=== PATIENT | female | born 1955 | race Caucasian/White ===

== ENCOUNTER 2024-10-14 10:14 | Outpatient (REF) | payer MEDICARE, SELFPAY | END 2024-10-14 10:15 | disposition home or self-care (01) | LOC: HO.HOSX 10:14 | PROVIDERS: PCP Internal Medicine; Visit Provider Physician Assistant | DX: M54.9 Dorsalgia, unspecified (principal) | CPT/HCPCS: 72110; 99202 ==

== ENCOUNTER 2024-10-14 10:14 | Outpatient (AMB) | payer MEDICARE, SELFPAY ==
--- NOTE | 2024-10-14 10:50 | A.SPINEOV_ITS ---
Vital Signs 10/14/24 10:54 Height 5 ft 1 in Weight 125 lb BMI 23.6 Intake Visit Reasons: 2 herniated disc/spinal stenosis Intake Note: Mrs. Shoemaker is here today c/o low back pain that radiates up to the mid back also hip pain. mostly on the right side. Protection Specialist Required: No Allergies erythromycin base Adverse Reaction (Unknown, Verified 10/14/24 10:55) Unknown Physical Exam Vital Signs: BMI result Body Mass Index 23.6 Assessment & Plan Assessment & Plan (1) Back pain: Code(s): M54.9 - Dorsalgia, unspecified Category: Medical Plan . This is a 69-year-old self-referred female presents to the office today for evaluation of chronic low back pain. It is centered mostly in the lower lumbar spine but she also does get some of it also radiating up toward her thoracic spine. She has had it for about 5 years but noticed over the last years has gotten progressively worse. Ever since this summer it has actually gotten to a point now where it is almost debilitating at times. Even gentle activity will give her significant amounts of pain. She tried prednisone, Flexeril etc.. She went to the urgent care in [place] and was evaluated there. She was told she was not a surgical candidate because she did not have any pain going down her legs. The pain intensifies with standing walking. It does not bother her so much at night but during activity during the day it is quite debilitating. She will occasionally get pain into her right hip but not anything shooting down her leg. She takes [id number] medications like Tylenol, Motrin etc. but these things do not seem to help. She did do healthcare administrative assistant for awhile but she isn't really sure that it was helping much. There was a fall at 1 point in February that seemed to really aggravate it a lot. She has an MRI done the [facility] showing multilevel degenerative disc disease with Modic endplate changes at L1-2, L4-5 and L5-S1 with moderate to severe central stenosis at L4- 5. PMH: She has history of borderline high cholesterol, hand surgery, cataract surgery, cholecystectomy. Social hx: She has not smoke, occasional alcohol use, no marijuana recreational drugs Medications: Rosuvastatin, trazodone Allergies: Erythromycin Physical exam: Awake alert oriented no acute distress, she does have tenderness over the midline lumbar spine, strength and reflexes as well as gait are normal. Imaging review: Lumbar MRI done in April of this year [facility] shows significant disc degeneration at multiple levels including L1-2, with edema and endplate changes at this level, moderate to severe disc degeneration at L4-5 and L5-S1. There are Modic endplate changes at L4-5 as well as moderate to severe central stenosis. Impression: 69-year-old female presents to the office today for evaluation of chronic back pain that is been getting steadily worse over the last 6-12 months. It centered all along the lumbar spine, primarily worse in the lower lumbar spine but at times can be quite intense as it radiates up along her thoracolumbar junction. She has multiple degenerative changes throughout her lumbar spine, the worst is at L1-2 where there are edema changes on the STIR sequence, Modic endplate changes at this level with almost complete collapse of the disc space. At L4-5 and L5-S1 she has moderate to severe degeneration also with Modic endplate changes but not quite as severe as L1-2. I sent the patient for x-rays standing in the upright position, no signs of a fracture or any overt instability. She does have severe DDD at the L1-2 which is [id number] as well as some lateral collapse at L4-5 on the left, which is looking like [id number] as well. We are going to send her to Dr. Cantrell to see if he can help us localize where the pain is coming from and maybe do some therapeutic injections for her. We will see her back after the injections are complete. Thank you for allowing us to care for your patient. The total time spent with this visit with this patient was 45 minutes reviewing history, physical exam, lumbar imaging review, and implementation of treatment plan or further diagnostic testing Chito Cameron MD,PhD [facility] Orders: Orders XR lumbar spine 4V min Today M54.9 - Dorsalgia, unspecified Referrals Physiatry Referral M54.9 - Dorsalgia, unspecified Coding Level of Care Code New Pt Level 4 (96180) Diagnoses Back pain M54.9
[2024-10-14 10:54] VITALS: BMI 23.6
--- OUTSIDE RECORDS SUMMARY | 2024-10-19 07:19 | XMS_ITS ---
Author Name [facility] Organization Unknown History of Medication Use Medication Directions Dispensed Refills Start Date End Date [facility] rosuvastatin 5 mg tablet TAKE 1 TABLET BY MOUTH ONCE DAILY 04/13/2024 active citalopram 40 mg tablet TAKE 1 TABLET BY MOUTH ONCE DAILY 04/13/2024 active trazodone 100 mg tablet TAKE 1 TABLET BY MOUTH ONCE DAILY AT BEDTIME 04/13/2024 active Problems Problem Status Onset Date Problem Type Date of Resoluti on Source Chronic low back pain active 2024-04-28 ProblemAct ENS_AONECT Degeneration of lumbar intervertebral disc active 2024-04-28 ProblemAct ENS_AONE [facility]
--- OUTSIDE RECORDS SUMMARY | 2024-10-19 07:19 | XMS_ITS | Data Portability ---
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 She has little in in the way of lower extremity symptoms if she sits in a chair and rides in a car for 1 to 2 hours her legs go numb. She denies fatigue heaviness or incoordination of her lower extremities. She has no sphincter disorder. Recently the pain has been disturbing her sleep every night. She denies fever chills sweats or unexplained weight loss. She has had intermittent back pain for years. At one point she had an MRI the physician told her she had a disc herniation. Overall she did well until November 2023 when she developed rather severe pain. She has been treated with career development facilitator acetaminophen and nonsteroidals without benefit. In January for about a month she noted some improvement but she is reverted to her level of significant pain. == Physical examination: Examination is unremarkable except for mild scoliotic deformity with secondary pelvic obliquity. Her spine is nontender. Her SI joints are nontender. Her leg lengths are equal (82 cm). She has no tension sign or weakness in either the upper or lower extremities. She has no Gutierrez's or clonus. Her plantar reflexes are downgoing. Her pedal pulses are intact. Pain cannot be reproduced with manipulation of her right hip. She is not tender over the trochanter. == We discussed the diagnosis natural history and treatment options. She has meaningful back pain with degenerative disc disease. She has failed reasonable nonoperative care. She is referred for a lumbar MRI. She is encouraged to pursue yoga with Eyad until she returns to review the MRI. Pending the results of the scan we could consider continued stoic forbearance, or formal physical therapy, injections or possibly surgery. 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 Her recent MRI revealed severe degenerative disc disease at L4-5 and L5-S1 and very severe degenerative disc disease at L1-2. She had associated lumbar stenosis primarily at L4-5. She has had extensive nonoperative care including physical therapy. Her examination is unremarkable without weakness. The pain is not reproduced with manipulation of her hips We had a truly extended conversation regarding her situation. Her safest and best option is to coexist with her symptoms. Unfortunately this is quite difficult. Her pain is greatly limiting her life. It is almost inconceivable that any combination of injections will bring her meaningful relief. We had a long discussion regarding surgical intervention. This is problematic for back pain without radicular pain but is even more problematic and that she has 2 segments of her lumbar spine that are focally but highly degenerated. One could consider a DLIF at L1-2 and an ALIF at L4-5 and L5-S1. I explained that the risks of the procedure are stable but the potential benefits are complicated and that we are unable to identify which of these problems and if either of these problems are the main issue. Ultimately if she found the pain were completely intolerable I would strongly consider L1 to DLIF. Depending on how she does over time I would consider an L4-S1 ALIF. She will consider her options and follow-up on an as-needed basis. Not available 04/28/2024 14:40:01 Plan of Treatment Reminders Order Date Submit Date Provider Last Modified By Organization Details Last Modified Time Details Appointments None recorded. Lab None recorded. Referral None recorded. Procedures None recorded. Surgeries None recorded. Imaging XR, lumbosacral spine, 2 or 3 view 2023 024 [facility], [address], [facility], [place], [address], 06/06/202 4 09:49:21 MRI, lumbar spine, w/o contrast 2023 024 JO ANN Not available 07:58:24 Medication Orders None recorded. Patient TargetsNo targets recorded. Patient Instructions Encounter Date Encounter Id Patient Instructions Last Modified By Organization Details Last Modified Time 04/11/2024 [id number] AP and lateral radiographs lumbosacral spine were obtained in the [place] facility today. The prominent findings include severe degenerative disc disease at L4-5 and L1-2. Both levels result in mild complementary scoliotic curves. There is moderate degenerative disc disease at L5-S1. There is no evidence of tumor fracture infection Not available 04/11/2024 15:34:59 Reason for Referral None Reported. Results Created Date Observation Date Name Description Value Unit Range Abnormal Flag Note LastModifiedBy Organization Detail LastModifiedTime 04/19/20 24 04/18/2024 MRI, lumba r spine , w/o contr ast No observ ation record ed. [email or web address] Not Available 04/21 07:58:24 04/28/20 24 MRI, lumba r spine , w/o contr ast No observ ation record ed. [email or web address] Not Available 2023 16:20:04 Result Notes None recorded. Problems Name Problem SNOMED Code Status Onset Date Resolution Date Notes Provider Name and Address Organization Details Recorded Time Chronic low back pain 738215851 Active 2023 Yordan Melendrez MD [address], [facility] [place], [address], [place] [facility], P 4 14:39:43 Degeneration of lumbar intervertebral disc 08153068 Active [address], [place], [address], [place] [facility], P 4 14:39:56 Problem Notes None recorded. Procedures Surgical History Date Name Laterality Status Provider Name and Address Organization Details Recorded Time Hand Surgery completed Roopa Carrington [place] - [facility] 04/11/2024 15:07:47 Hand Surgery completed Roopa Carrington [place] [facility] 04/11/2024 15:07:47 Imaging Results Imaging Date Name Status LastModified by Organiz ation Details LastModified Time 04/18/2024 MRI, lumbar spine, w/o contrast completed [email or web address] Information not available 04/21/2024 07:58:24 04/28/2024 MRI, lumbar spine, w/o contrast completed [email or web address] Information not available 04/28/2024 16:20:04 Procedure Notes None recorded. Medical Equipment None Reported. Allergies No known drug allergies Medications Name Sig Start Date Stop Date Status Note LastModified by Organization Details LastModified Time citalopram 40 mg tablet TAKE 1 TABLET BY MOUTH ONCE DAILY 04/28 completed Not Available Not Available Not Available trazodone 100 mg tablet TAKE 1 TABLET BY MOUTH ONCE DAILY AT BEDTIME active Not Available Not Available No t Available rosuvastatin 5 mg tablet TAKE 1 TABLET BY MOUTH ONCE DAILY active Not Available Not Available No t Available Vitals Date Recorded Body height Body mass index (BMI) Body weight Provider Name and Address Organization Details Last Updated DateTime 04/11/2024 154.94 cm 23.6 kg/m2 62789.[address] [facility] 04/11/2024 15:06:28 Date Recorded Body height Body mass index (BMI) Body weight Provider Name and Address Organization Details Last Updated DateTime 04/28/2024 154.94 cm 23.6 kg/m2 00782.05 g Joyce Dominguez [place] - [facility] 04/28/2024 13:57:44 Social History Question Answer Notes LastModified by Organizat ion Details LastModified Time Tobacco Smoking Status Never Smoker Roopa Carrington null, [place] [facility] 04/11/2024 15:06:56 What Is Your Level Of Alcohol Consumption? Moderate [email or web address] Information not available 04/11/2024 How Many Times Per Week Do You Consume Alcohol? 3-4 Times Per Week [id number] Information not available 04/11/2024 Do You Use Any Illicit Or Recreational Drugs? No [id number] Information not available 04/11/2024 Do You Or Have You Ever Used Any Other Forms Of Tobacco Or Nicotine? No [email or web address] Information not available 04/11/2024 Sex: Unknown Functional Status None recorded. Mental Status None recorded. Family History Relationship Description Onset Age of this Age Resolved Age Notes LastModified by Organization Details LastModified Time Mother Arthritis [email or web address] Not armaan ilable 04/11/2024 15:07:16 Mother Hyperlipidem ia [id number] Not available 15:07:34 Brother Arthritis [email or web address] Not av ailable 04/11/2024 15:07:17 Medical History Condition Response Coronary Artery Disease N Gout N Hyperthyroidism N MRSA N Blood Transfusion N Emphysema N Depression N COPD N Hypothyroidism N Pacemaker N Vascular Disease N Gastrointestinal Disease N Anxiety Disorder N Autoimmune disease N Arthritis N Cancer N Stroke N High Cholesterol N Neurologic Disorder N Liver Disease N Organ Transplant N Rheumatoid Arthritis N Arrhythmia N Fibromyalgia N Kidney Disease N Allergies/Hayfever N Adverse Reaction to Anesthesia N Thyroid Problems N Anemia N Brain Injury N Heart Attack ([place]) N Osteopenia N Diabetes N Bleeding Disorder N Seizures/Epilepsy N AIDS/HIV N Congestive Heart Failure (CHF) N Asthma N Amputation N Reflux/GERD N Sleep Apnea N Hepatitis N Aneurysm N Heart Disease N Pulmonary Embolism N Hypertension N Osteoporosis N Gynecological HistoryNo gynecological history recorded. Obstetrics History GPAL:G 0 P 0 0 0 0 Past Encounters Encounter ID Performer Location Encounter Start Date Encounter Closed Date Diagnosis/Indication Diagnosis SNOMED-CT Code Diagnosis ICD10 Code [id number] Yordan Melendrez MD [address] [address] 04/11/2024 14:59:43 04/11/2024 15:40:13 Low back pain 073668259 M54.50 [id number] Yordan Melendrez MD [address] [address] 04/28/2024 13:38:39 04/28/2024 14:41:13 Chronic low back pain 940164150 M54.50 G89.29 Degenerati on of lumbar intervertebral disc 70940480 M51.36 Health Concerns Section Related Observation LastModified by Organization Detai ls LastModified Time None Recorded Concern Status LastModified by Organization Details LastModified Time None Recorded Advance Directives Directive None Recorded Payers Encounter Date Sequence Insurance Name Policy Number Policy Salas Covered Member ID Salas Member ID Guarantor Name 04/11/2024 1 [employer] - MED[employer]ARE ADVANTAGE PLAN (MEDICARE REPLACEMENT HMO) [id number] 1 Jennifer Shoemaker [id number] Jennifer Shoemaker 04/28/2024 1 [employer] - MEDIC[employer] ADVANTAGE PLAN (MEDICARE REPLACEMENT HMO) [id number] Jennifer Shoemaker [id number] Jennifer Shoemaker OBGyn Episode No OBEpisode recorded.
== END 2024-10-14 11:49 | disposition home or self-care (01) ==
PROVIDERS: PCP Internal Medicine; Visit Provider Physician Assistant
DX: M54.9 Dorsalgia, unspecified (principal)
CPT/HCPCS: 99204

== ENCOUNTER → 2024-12-02 14:35 | Outpatient (BNVA) | payer MEDICARE, SELFPAY | PROVIDERS: PCP Internal Medicine; Visit Provider Physician Assistant | DX: M54.9 Dorsalgia, unspecified (principal); M48.061 Spinal stenosis, lumbar region without neurogenic claudication | CPT/HCPCS: 99212 ==

== ENCOUNTER 2025-02-02 07:24 | Day surgery (SDC) | payer MEDICARE, SELFPAY ==
[2025-01-19 12:20] VITALS: BMI 24.9
--- NOTE | 2025-01-20 14:25 | HO.ANESPROP2 ---
Documented by User: Anastasiia Grant NP 01/20/25 14:33 HPI - Anesthesia Eval Consult details Narrative: 69yo F for Left-sided approach for bilateral L4 - 5 decompression Optimized per PCP [facility] Active Problems Active Problems: All Active Problems Lumbar stenosis (Acute) Back pain (Acute) Past Medical History Medical History [employer] [place] [employer] (hard of hearing) Wears hearing aid in both ears Wears dentures History of trigger finger Spinal stenosis Insomnia Surgical History Surgical History History of carpal tunnel release Hx of bilateral cataract extraction Hx of colonoscopy Hx of cholecystectomy Social History Social History Household Members: Spouse Housing: House Are you a primary care attendant to a significant other at home: No Do you presently have visiting nurse or other home services: No Patient Tobacco Use Status: Former Tobacco user Tobacco use type: Cigarette Smoked in Last 30 Days: No Use of substances other than those prescribed or required for medical reasons: No Have you been hit, kicked, punched, or otherwise hurt by someone within the past year? If so, by whom?: No Are you DNR?: No Advance Directives: No Advance Directives Information Provided: Yes Advance Directives on File: No Healthcare Proxy: No Recently lost weight without trying: No Meds Allergies Allergy/AdvReac Type Severity Reaction Status Date / Time erythromycin base AdvReac Unknown Rash, as a Verified 02/02/25 08:09 child Home Medications ?Medication ?Instructions ?Recorded ?Confirmed ?Last Taken ?Type gabapentin 400 mg capsule 400 mg PO TID 01/18/25 02/02/25 02/02/25 History rosuvastatin 5 mg tablet 5 mg PO DAILY 01/18/25 02/02/25 Unknown History trazodone 100 mg tablet 100 mg PO BEDTIME 01/18/25 02/02/25 Unknown History Exam Height,Weight and Vital Signs: Height 5 ft 1 in Weight 59.874 kg Pertinent Lab Results Pertinent Lab Results: CBC and CMP 01/2025 from outside facility WNL Narrative Narrative: EKG 01/2025 SR Low voltage Poor R wave progression Assessment and Plan Assessment Anesthesia Assessment: Chart Reviewed Documented by User: Fransisca Barrios MD 02/02/25 08:50 PMFSH Past Medical History Medical History [employer] [place] (hard of hearing) Wears hearing aid in both ears Wears dentures History of trigger finger Spinal stenosis Insomnia Family History Family history of problems with anesthesia: No Surgical History Surgical History History of carpal tunnel release Hx of bilateral cataract extraction Hx of colonoscopy Hx of cholecystectomy History of Problems with Anesthesia: No Social History Social History Household Members: Spouse Housing: House Are you a primary care attendant to a significant other at home: No Do you presently have visiting nurse or other home services: No Patient Tobacco Use Status: Former Tobacco user Tobacco use type: Cigarette Smoked in Last 30 Days: No Use of substances other than those prescribed or required for medical reasons: No Have you been hit, kicked, punched, or otherwise hurt by someone within the past year? If so, by whom?: No Are you DNR?: No Advance Directives: No Advance Directives Information Provided: Yes Advance Directives on File: No Healthcare Proxy: No Recently lost weight without trying: No Meds Allergies Allergy/AdvReac Type Severity Reaction Status Date / Time erythromycin base AdvReac Unknown Rash, as a Verified 02/02/25 08:09 child Home Medications ?Medication ?Instructions ?Recorded ?Confirmed ?Last Taken ?Type gabapentin 400 mg capsule 400 mg PO TID 01/18/25 02/02/25 02/02/25 History rosuvastatin 5 mg tablet 5 mg PO DAILY 01/18/25 02/02/25 Unknown History trazodone 100 mg tablet 100 mg PO BEDTIME 01/18/25 02/02/25 Unknown History Exam Airway Mallampati Class: II TM Dist: >3cm Neck ROM: Full Denture: Upper Assessment and Plan Assessment Anesthesia Assessment: Anesthesia Plan Discussed Final Anesthetic Review Family History of Problems with Anesthesia: No History of Problems with Anesthesia: No NPO: Yes ASA Class: II Final Preanesthetic Review: No Changes in Pt Med Stat, Meds/Allgs Chart Reviewed, Consent Obtained/Reviewed and Anes Risks/Benef Reviewed Patient Risk: Low Procedure Risk: Intermediate Anesthetic Plan Anesthetic Plan: GA Disposition: Standard PACU
--- NOTE | ~2025-02-02 | FL_ITS ---
EXAMINATION: FL GUIDANCE ONLY HISTORY: L4-L5 bilateral decompression COMPARISON: Correlation is made with plain films of the lumbar spine dated 10/14/2024. TECHNIQUE: Fluoroscopy time: Less than 1 minute. Cumulative Dose: 2.69 mGy. DAP: 0.579 mGym2 Images: 1. FINDINGS: A single fluoroscopic spot film of the lumbar spine in the lateral projection demonstrates a probe directed toward the L4-5 intervertebral disc space from a posterior approach. FL/FL guidance in OR IMPRESSION: Fluoroscopy during procedure. Please see procedure report for additional information. Electronically signed by: Oliver Ontiveros MD 02/02/2025 10:48 AM EDT
[2025-02-02 08:17] VITALS: BP 136/63; PULSE 60; RESP 14; TEMP 36.6; O2SAT 99
[2025-02-02] MEDS: methocarbamoL 750 MG TABLET PO (08:36)
[2025-02-02] MEDS: Lactated Ringers 1,000 ML 100 ML IVCONT (08:36)
--- NOTE | 2025-02-02 08:37 | PC.NURSE ---
Gabapentin not given as ordered by Dr. Cameron Pt states took 400mg Gabapentin at home at 700AM.
--- NOTE | 2025-02-02 08:54 | MHC.SHP ---
Pre-Procedural Eval Section A - 24 Hr Update-Section A only Date of Service: 02/02/25 The patient is an INPATIENT: No Section B - Complete if H&P > 30 days Chief Complaint: Spinal stenosis, lumbar region without neurogenic Details of Present Illness: neurogenic claudicatio Allergies: Allergies Allergy/AdvReac Type Severity Reaction Status Date / Time erythromycin base AdvReac Unknown Rash, as a Verified 02/02/25 08:09 child Review of Systems Sugical H&P ROS: Negative: Constitution, Cardiovascular, Respiratory, Neurological, Psychiatric, Hem-Onc, Allergic/Immunologic, Gastrointestinal, Genitourinary, Musculoskeletal, Integumentary, Endocrine and Eyes/Ears/Nose/Throat Exam Surgical H&P Exam: Normal: HEENT, Normal: Heart, Normal: Lungs, Normal: Extremities, Normal: Abdomen, Normal: Skin and Normal: Neurological (awake, alert) Plan Diagnosis/Plan: Unchanged I have reviewed the history and physical and performed a pertinent physical examination on my patient. No changes have occurred unless specified. bilateral L4-5 decompression, left side approach Time Spent With Patient Time: Total time managing care of this patient today ____ minutes.
--- NOTE | 2025-02-02 09:40 | P.DS_ITS ---
DS: Providers Provider Date of Service: 02/02/25 Date of discharge: 02/02/25 Primary care physician: Jessie Vera MD Admitting clinician: Eduardo Cameron DS: Diagnosis Discharge Diagnosis (1) Lumbar stenosis: Status: Acute DS: Summary Time Attestation Discharge Coordination Time (in mins): 4 Quality: Safe Use of Opioids Does Pt have an Active Cancer Diagnosis on the Problem List?: No Quality: Stroke Does the patient have a stroke diagnosis?: No Physical Exam Vital Signs: Vital Signs: Last Vital Signs Temp 97.9 F 02/02/25 08:17 Pulse 60 02/02/25 08:17 Resp 14 02/02/25 08:17 BP 136/63 02/02/25 08:17 Pulse Ox 99 02/02/25 08:17 O2 Del Method Room Air 02/02/25 08:17 BMI result Body Mass Index 24.9 Discharge Plan Discharge Patient Disposition: Home, Self-Care Referrals: Jessie Vera MD [Primary Care Provider] - 1 Week Discharge Medications: New oxycodone 5 mg tablet 5 mg PO Q4H PRN (Reason: pain) Qty: 30 0RF Rx Instructions: Partial Fill upon patient request. docusate sodium [Colace] 100 mg capsule 100 mg PO BID Qty: 20 0RF Continued gabapentin 400 mg capsule 400 mg PO TID trazodone 100 mg tablet 100 mg PO BEDTIME rosuvastatin 5 mg tablet 5 mg PO DAILY Discharge Orders: Discharge Order (Routine); Ordered 02/02/25 Ordered By: Chito Bernardo Diet: Advance to usual diet Activity on Discharge: As tolerated Activity Restrictions/Additional Instructions: After your spinal surgery we ask you to observe the following restrictions/guidelines: Activity: It is normal to feel some discomfort as you increase your activity, but that will improve with time. We ask you avoid heavy lifting or acitivities that cause pain. As a general rule, 8lbs is a safe limit for lifting right after surgery. Walk as much as you feel comfortable but not to exhaustion. You will feel extra tired the first few days after surgery. Stay well hydrated. It is OK to walk up and down stairs You may return to driving when you are off narcotics (such as vicodin, oxycodone, dilaudid, etc), and you are back to normal functional capacity. If you have any concerns please check with office before driving. Return to work is specific to each patient and each surgery, so please speak with your doctor/PA at first follow up. Please bring paperwork such as FMLA at that time if you need it filled out. Medications: For optimum pain control, it is best to start with a combination of 500 mg of Tylenol every 4 hours with 600 mg of Motrin every 8 hours, and use narcotics as needed in between for breakthrough pain. We will give you a short supply of narcotics after surgery (usually one weeks worth). If you need more please call the office but do not use more than prescribed. You will need to give our office 48 hours notice if you need narcotics refilled and we do not fill narcotics on weekends or evenings. If you are on a narcotic, it is a good idea to take a stool softener such as colace or senna to avoid constipation If you take blood thinner such as aspirin, Plavix, Coumadin, Effient, Eliquis etc for conditions such as Afib, DVT, Pulmonary embolus, coronary disease, stents etc please speak with your surgeon about specific details as to when you can resume these medications. You can resume NSAIDs on post op day 1 (eg: Motrin, Naproxen, etc). Follow up: Please call the office, , after surgery to arrange a 3 week follow up for wound check. Wound Care: You may remove your dressing on the first day after surgery. ?You may ?leave open to air. Please do not remove the steri strips underneath. they will fall off on their own in one week. IT IS NORMAL FOR THE WOUND TO OOZE OR BE BLOODY FOR A FEW DAYS AFTER SURGERY. ?IF THIS HAPPENS JUST PLACE NEW DRESSING OVER IT TO AVOID STAINING CLOTHES. You may shower on post op day # 1 We ask that you do not let the water soak the wound. If it does get wet, just towel dry lightly. Please do not scrub your incision or place any type of chemical/ointment on the wound. No tub baths, pools or jacuzzis for one month. If you have any leaking or redness from your wound, or fevers, please call office Print Language: Ecuadorean
[2025-02-02] MEDS: ceFAZolin Sodium/Dextrose,Iso 2 GM/50 ML PIGGYBACK IV (09:45)
[2025-02-02] MEDS: Acetaminophen 1,000 MG/100 ML PIGGYBACK 400 MG IV (10:00)
--- NOTE | 2025-02-02 10:40 | W.PM.OPN ---
Operative Note Operative Note Date of Service: 02/02/25 Narrative: Preoperative Diagnosis: L4-5 spinal stenosis/lateral recess stenosis/neural foraminal stenosis Operation: L4-5 Laminotomy, Partial facetectomy and foraminotomy with use of microscope Consent Informed Consent was obtained for this operation. I have explained the nature, purpose and benefits of the operation. I have discussed the risks and benefit of the operation including possible complications or adverse events with patient/family. Alternative(s) were discussed with the patient with their relative benefits and risks as well as the consequences of not accepting the operation were included in obtaining consent. Surgeon: CARA PINEDA MD, PHD Procedure Assisted By: Chito Duong Description of Procedure This patient is suffering from neurogenic claudication. The patient was offered a decompression. The procedure complications were explained. The patient was consented. The patient was brought to the operating room and endotracheally intubated. The patient was turned in prone position on the Walter frame. Prep and drape was done followed by timeout. The Physician assistant quality manager provided access. A mid lumbar incision was made followed by release of the paravertebral muscle on the left side to expose the L4-5 lamina and facet joints. An intraoperative x-ray was obtained to confirm the correct level. The microscope was brought in. I took over the procedure. The high-speed drill was used to do a left L4-5 laminotomy until flavum ligament was reached. A #2 Kerrison was used to expand the laminotomy near flush to the pedicles and to include a partial facetectomy. The flavum ligament was opened and resected with a #3 Kerrison to decompress the underlying thecal sac. The flavum ligament was removed to decompress the lateral recess and the exiting L5 nerve root. The patient was turned contralaterally. The spinous processes undercut and this way I was able to remove the flavum ligament contralaterally into decompress the lateral recess and exiting nerve root. A long nerve hook could be easily passed along the medial side of the pedicles as a sign of adequate decompression. The microscope was removed. Hemostasis was done. The physician assistant quality manager close the Incision in 2 layers. Steri-Strips were used to approximate incision. An OpSite with Tegaderm was used to cover the incision. All sponge needle counts were correct. Patient was extubated and transported in stable is to recovery room. Anesthesia: General Estimated Blood Loss (ml): 20 Complications: None Duration of Surgery: Under 60 Minutes Postoperative Plan: Discharge to home
[2025-02-02 10:51] VITALS: BP 139/67; PULSE 91; RESP 16; TEMP 36.6; O2SAT 100
[2025-02-02 10:55] VITALS: BP 131/67; PULSE 75; RESP 16; O2SAT 100
[2025-02-02 11:00] VITALS: BP 122/74; PULSE 72; RESP 16; O2SAT 98
[2025-02-02 11:05] VITALS: BP 136/63; PULSE 70; RESP 16; O2SAT 97
[2025-02-02 11:11] VITALS: BP 139/66; PULSE 78; RESP 16; TEMP 36.6; O2SAT 97
== END 2025-02-02 11:34 | disposition home or self-care (01) ==
PROVIDERS: PCP Internal Medicine; Visit Provider Neurological Surgery
PROC: (CPT 63047; principal; 2025-02-02 10:00)
DX: M48.062 Spinal stenosis, lumbar region with neurogenic claudication (principal); M54.50 Low back pain, unspecified; F32.A Depression, unspecified; E78.5 Hyperlipidemia, unspecified; G47.9 Sleep disorder, unspecified; H91.90 Unspecified hearing loss, unspecified ear; Z79.899 Other long term (current) drug therapy; Z88.1 Allergy status to other antibiotic agents; Z98.890 Other specified postprocedural states; Z87.891 Personal history of nicotine dependence
CPT/HCPCS: 63047; J0131; J0690; J1100; J1885; J2003; J2405; J2704; J3010

== ENCOUNTER → 2025-02-02 07:24 | Outpatient (BNV) | payer MEDICARE, SELFPAY | PROVIDERS: PCP Internal Medicine; Visit Provider Neurological Surgery | DX: M48.062 Spinal stenosis, lumbar region with neurogenic claudication (principal) | CPT/HCPCS: 63047; 99499 ==

== ENCOUNTER 2025-02-22 11:40 | Outpatient (AMB) | payer MEDICARE, SELFPAY ==
--- NOTE | 2025-02-22 11:41 | A.SPINEOV_ITS ---
Intake Visit Reasons: 1st post op Intake Note: Ms. Shoemaker is here today for her 1st post op. Change Manager Required: No Allergies erythromycin base Adverse Reaction (Unknown, Verified 02/02/25 08:09) Rash, as a child Assessment & Plan Assessment & Plan (1) Status post lumbar spine surgery for decompression of spinal cord: Code(s): Z98.890 - Other specified postprocedural states Category: Medical Plan Operation: L4-5 Laminotomy, Partial facetectomy and foraminotomy Jennifer is a pleasant 69-year-old female who comes in today for her 1st postoperative visit after having L4-5 lumbar decompression completed by Dr. Cameron. She reports that she has been doing very well since her surgery, and has little to no pain. She has been completing her ADLs without much issue. She is not taking any narcotic pain medication at this time. She does still take gabapentin occasionally, for breakthrough nerve pain. She asked several questions regarding returning to activity including exercise and walking. I answered these questions to the best of my ability. No new neurological deficits. The patient ambulates well and rises from a seated position without difficulty. Her posterior incision site is closed and well healing with no signs of drainage or swelling. I would like Jennifer to follow up with the skin in 6 weeks for her 2nd postoperative visit. Pro Cameron MD,PhD [facility] Coding Level of Care Code Global (07729) Diagnoses Status post lumbar spine surgery for decompression of spinal cord Z98.890
--- OUTSIDE RECORDS SUMMARY | 2025-02-22 14:07 | XMS_ITS ---
Author Organization [facility] Address [address] [place] [address] Care Team Providers Care Front Desk Administrator Name Role Phone CANDIDO VERA Unavailable [phone] MOLYL FLORESY Unavailable [phone] ALLERGIES No Known Allergies RESULTS Component Value Reference Range Notes LIPID PANEL, STANDARD Reviewed date:01/19/2025 07:57:53 AM Interpretation: Performing Lab:NL2, [facility] [id number] Gi Diaz Notes/Report: FASTING: YES FASTING:YES 0; 0; 0; 0; 0; 0 CHOLESTEROL, TOTAL 235 <200 mg/dL HDL CHOLESTEROL 80 > OR = 50 mg/dL TRIGLYCERIDES 104 <150 mg/dL LDL-CHOLESTEROL 134 Reference range: <100 Desirable range <100 mg/dL for primary prevention; <70 mg/dL for patients with CHD or diabetic patients with > or = 2 CHD risk factors. LDL-C is now calculated using the Terri calculation, which is a validated novel method providing better accuracy than the Friedewald equation in the estimation of LDL-C. Quang SOLER et al. YANI. 2013;310(19): 3825-9733 (http://education.[employer].Zane Prep/faq/FAQ16 4) CHOL/HDLC RATIO 2.9 <5.0 (calc) NON HDL CHOLESTEROL 155 <130 mg/dL (calc) For patients with diabetes plus 1 major ASCVD risk factor, treating to a non-HDL-C goal of <100 mg/dL (LDL-C of <70 mg/dL) is considered a therapeutic option. COMPREHENSIVE METABOLIC PANE L Reviewed date:01/19/2025 07:57:53 AM Interpretation: Performing Lab:NL2, [facility] Gi Diaz Notes/Report: 0; 0; 0; 0; 0; 0 FASTING:YES FASTING: YES GLUCOSE 101 65-99 mg/dL Fasting reference interval For someone without known diabetes, a glucose value between 100 and 125 mg/dL is consistent with prediabetes and should be confirmed with a follow-up test. UREA NITROGEN (BUN) 15 7-25 mg/dL CREATININE 0.75 0.60-1.00 mg/dL EGFR 85 > OR = 60 mL/min/1.73m2 BUN/CREATININE RATIO SEE NOTE: 6-22 (calc) Not Reported: BUN and Creatinine are within reference range. SODIUM 140 135-146 mmol/L POTASSIUM 5.1 3.5-5.3 mmol/L CHLORIDE 107 98-110 mmol/L CARBON DIOXIDE 28 20-32 mmol/L CALCIUM 9.5 8.6-10.4 mg/dL PROTEIN, TOTAL 6.8 6.1-8.1 g/dL ALBUMIN 4.5 3.6-5.1 g/dL GLOBULIN 2.3 1.9-3.7 g/dL (calc) ALBUMIN/GLOBULIN RATIO 2.0 1.0-2.5 (calc) BILIRUBIN, TOTAL 0.4 0.2-1.2 mg/dL ALKALINE PHOSPHATASE 56 37-153 U/L AST 27 10-35 U/L ALT 34 6-29 U/L CBC (INCLUDES DIFF/PLT) Reviewed date:01/19/2025 07:57:53 AM Interpretation: Performing Lab:DARSHANA2, [facility] Gi Diaz Notes/Report: 0; 0; 0; 0; 0; 0 FASTING:YES FASTING: YES WHITE BLOOD CELL COUNT 6.5 3.8-10.8 Thousand/ uL RED BLOOD CELL COUNT 4.26 3.80-5.10 Million/uL HEMOGLOBIN 13.6 11.7-15.5 g/dL HEMATOCRIT 40.8 35.0-45.0 % MCV 95.8 80.0-100.0 fL MCH 31.9 27.0-33.0 pg MCHC 33.3 32.0-36.0 g/dL For adults, a slight decrease in the calculated MCHC value (in the range of 30 to 32 g/dL) is most likely not clinically significant; however, it should be interpreted with caution in correlation with other red cell parameters and the patient's clinical condition. RDW 11.5 11.0-15.0 % PLATELET COUNT 292 140-400 Thousand/uL MPV 11.0 7.5-12.5 fL ABSOLUTE NEUTROPHILS 4570 3727-6743 cells/uL ABSOLUTE LYMPHOCYTES 8548 159-2131 cells/uL ABSOLUTE MONOCYTES 468 200-950 cells/uL ABSOLUTE EOSINOPHILS 59 15-500 cells/uL ABSOLUTE BASOPHILS 52 0-200 cells/uL NEUTROPHILS 70.3 LYMPHOCYTES 20.8 MONOCYTES 7.2 EOSINOPHILS 0.9 BASOPHILS 0.8 URINALYSIS, COMPLETE Reviewed date:01/19/2025 07:57:53 AM Interpretation: Performing Lab:NL2, [facility] Gi Diaz Notes/Report: 0; 0; 0; 0; 0; 0 FASTING:YES FASTING: YES COLOR YELLOW YELLOW APPEARANCE CLEAR CLEAR SPECIFIC GRAVITY 1.022 1.001-1.035 PH 5.5 5.0-8.0 GLUCOSE NEGATIVE NEGATIVE BILIRUBIN NEGATIVE NEGATIVE KETONES NEGATIVE NEGATIVE OCCULT BLOOD NEGATIVE NEGATIVE PROTEIN NEGATIVE NEGATIVE NITRITE NEGATIVE NEGATIVE LEUKOCYTE ESTERASE NEGATIVE NEGATIVE WBC NONE SEEN < OR = 5 /HPF RBC 0-2 < OR = 2 /HPF SQUAMOUS EPITHELIAL CELLS NONE SEEN < OR = 5 /HPF BACTERIA NONE SEEN NONE SEEN /HPF HYALINE CAST NONE SEEN NONE SEEN /LPF NOTE This urine was analyzed for the presence of WBC, RBC, bacteria, casts, and other formed elements. Only those elements seen were reported. HEMOGLOBIN A1c Reviewed date:01/19/2025 07:57:53 AM Interpretation: Performing Lab:NL2, [facility] Gi Diaz Notes/Report: 0; 0; 0; 0; 0; 0 FASTING:YES FASTING: YES HEMOGLOBIN A1c 5.3 <5.7 % of total Hgb For the purpose of screening for the presence of diabetes: <5.7% Consistent with the absence of diabetes 5.7-6.4% Consistent with increased risk for diabetes (prediabetes) > or =6.5% Consistent with diabetes This assay result is consistent with a decreased risk of diabetes. Currently, no consensus exists regarding use of hemoglobin A1c for diagnosis of diabetes in children. According to [place] Diabetes Association (ADA) guidelines, hemoglobin A1c <7.0% represents optimal control in non- diabetic patients. Different metrics may apply to specific patient populations. Standards of Medical Care in Diabetes(ADA). VITAMIN D,25-OH,TOTAL,IA Reviewed date:01/19/2025 07:57:53 AM Interpretation: Performing Lab:NL2, [facility] [id number] [place], [place] [id number] Gi Diaz Notes/Report: 0; 0; 0; 0; 0; 0 FASTING:YES FASTING: YES VITAMIN D,25-OH,TOTAL,IA 69 30-100 ng/mL Vitamin D Status 25-OH Vitamin D: Deficiency: <20 ng/mL Insufficiency: 20 - 29 ng/mL Optimal: > or = 30 ng/mL For 25-OH Vitamin D testing on patients on D2-supplementation and patients for whom quantitation of D2 and D3 fractions is required, the QuestAssureD(TM) 25-OH VIT D, (D2,D3), LC/MS/MS is recommended: order code [id number] (patients >2yrs). See Note 1 Note 1 For additional information, please refer to http://education.[employer]/faq/TFO276 (This link is being provided for informational/ educational purposes only.) EKG Reviewed date:01/17/2025 03:03:18 PM Interpretation: Performing Lab: Notes/Report: ECGDiastolicBP 82 ECGDiastolicBP 82 ECGHr 73 ECGHr 77 ECGPRInterval 150 ECGPRInterval 150 ECGPWaveAxis 27 ECGPWaveAxis 25 ECGQRSDuration 80 ECGQRSDuration 82 ECGQrsWaveAxis -3 ECGQrsWaveAxis -1 ECGQTcInterval 380 ECGQTcInterval 395 ECGQTInterval 358 ECGQTInterval 366 ECGSystolicBP 120 ECGSystolicBP 120 ECGTWaveAxis 17 ECGTWaveAxis 17 RR_DiastolicBP 0 RR_DiastolicBP 0 RR_MaxRRInterval 0 RR_MaxRRInterval 0 RR_MeanHR 0 RR_MeanHR 0 RR_MeanRRInterval 0 RR_MeanRRInterval 0 RR_MinRRInterval 0 RR_MinRRInterval 0 RR_NumBeats 0 RR_NumBeats 0 RR_NumNormalBeats 0 RR_NumNormalBeats 0 RR_SystolicBP 0 RR_SystolicBP 0 EKG Reviewed date:01/17/2025 03:03:18 PM Interpretation: Performing Lab: Notes/Report: ECGDiastolicBP 82 ECGDiastolicBP 82 ECGHr 73 ECGHr 77 ECGPRInterval 150 ECGPRInterval 150 ECGPWaveAxis 27 ECGPWaveAxis 25 ECGQRSDuration 80 ECGQRSDuration 82 ECGQrsWaveAxis -3 ECGQrsWaveAxis -1 ECGQTcInterval 380 ECGQTcInterval 395 ECGQTInterval 358 ECGQTInterval 366 ECGSystolicBP 120 ECGSystolicBP 120 ECGTWaveAxis 17 ECGTWaveAxis 17 RR_DiastolicBP 0 RR_DiastolicBP 0 RR_MaxRRInterval 0 RR_MaxRRInterval 0 RR_MeanHR 0 RR_MeanHR 0 RR_MeanRRInterval 0 RR_MeanRRInterval 0 RR_MinRRInterval 0 RR_MinRRInterval 0 RR_NumBeats 0 RR_NumBeats 0 RR_NumNormalBeats 0 RR_NumNormalBeats 0 RR_SystolicBP 0 RR_SystolicBP 0 REASON FOR VISIT pt presents in office today for preop with suregry date of 02/02/[address] cameron for lumbar decompresion needs ekg, cbc and comp fax [phone] MEDICATIONS Medication SIG (Take, Route, Frequency, Duration) Notes Start Date End Date Status CoQ-10 100 MG as directed Orally Active Gabapentin 400 MG 1 capsule Orally Thr ee times daily Active Glucosamine 500 MG 1 capsule with a destinee l Orally once a day Active Rosuvastatin Calcium 5 MG 1 tablet Orall y Once a day for 90 days 01/24/2022 Active traZODone HCl 100 MG TAKE 1 TABLET BY [facility] AT BEDTIME for 90 Active Vitamin D 50 MCG (1999) 1 tablet Oral ly Once a day Active PROBLEMS Problem Type ICD Code Onset Dates Problem Status W/U Status Risk SNOMED Code Notes Problem Difficulty sleeping (G47.9) Active confirmed Difficulty sleeping (667376254) Problem Hyperlipidemia (E78.5) Active confirmed Hyperlipidemia (75730229) Problem Hearing loss (H91.90) Active confirmed Hearing loss (56882894) VITAL SIGNS Blood pressure systolic 120 mm Hg 01/18/20 25 Blood pressure diastolic 82 mm Hg 025 Heart Rate 81 /min 01/17/2025 Height 60 in 01/17/2025 Weight 133 lbs 01/17/2025 BMI 25.97 kg/m2 01/17/2025 Oximetry 95 % 01/17/2025 Encounters Encounter Location Date Provider Diagnosis [facility] [address] [place] [address] 01/17/2025 IMER FLORES Preop examination Z01.818 ; Lumbar back pain M54.50 ; Difficulty sleeping G47.9 ; Hearing loss H91.90 and Hyperlipidemia E78.5 ASSESSMENTS Encounter Date Diagnosis Assessment Notes Treatment Notes Treatment Clinical Notes Section Notes 01/17/2025 Preop examination (ICD-10 - Z01.818) Jennifer is a pleasant 69-year-old female who presents the office for a preop visit. She is scheduled with Dr. Cameron for lumbar decompression on 02/02/2025. EKG completed today, overall without acute concern. CBC, and CMP pending. # Vital stable # Vitamin D deficiency: Taking vitamin D # Chronic back pain: Scheduled for spinal decompression, takes gabapentin 400 mg 3 times daily # Hyperlipidemia: Rosuvastatin 5 mg # Difficulty sleeping: Trazodone 100 mg at night # Hearing loss: Bilateral hearing aids in place # Patient has upper and lower dentures/implants. # History of tobacco use, quit 1983. This is to inform you that I have examined our patient and after reviewing all clinically relevant information I find the patient to be medically stable, and is at an acceptable risk and fit to undergo Spinal decompression as mentioned above under anesthesia with its attendant risks. Please review the attached history and physical will help you in the management of this patient Preoperative cardiac risk index risk/García SUSAN *0.1 % risk of MN, cardiac arrest or other cardiac events intraoperatively or up to 30 days postop Alexandre RCI *3.9% 30 day risk of MN or cardiac arrest Please do not hesitate to further contact me for information or questions Following up with Dr. Shantell Vera for Medicare wellness visit on 03/15/2025. Fasting labs prior. All quetsions answered to patients satisfaction. Patient verbalized understanding of diagnosis and treatments explained. To call sooner prior to next visit it any questions/concerns arise. Case discussed with collaborating physician Lisa Vera who reviewed the assessment and plan. Chart, medications, labs, vital signs reviewed. Dictation was accomplished with the use of [employer] voice recognition software, prone to medical misidentifications and grammatical errors. This is unintentional and the practitioner does try to identify and correct these, but some could still be present. Please do not hesitate to contact practitioner for clarification. 01/17/2025 Lumbar back pain (ICD-10 - M54.50) Jennifer is a pleasant 69-year-old female who presents the office for a preop visit. She is scheduled with Dr. Cameron for lumbar decompression on 02/02/2025. EKG completed today, overall without acute concern. CBC, and CMP pending. # Vital stable # Vitamin D deficiency: Taking vitamin D # Chronic back pain: Scheduled for spinal decompression, takes gabapentin 400 mg 3 times daily # Hyperlipidemia: Rosuvastatin 5 mg # Difficulty sleeping: Trazodone 100 mg at night # Hearing loss: Bilateral hearing aids in place # Patient has upper and lower dentures/implants. # History of tobacco use, quit 1983. This is to inform you that I have examined our patient and after reviewing all clinically relevant information I find the patient to be medically stable, and is at an acceptable risk and fit to undergo Spinal decompression as mentioned above under anesthesia with its attendant risks. Please review the attached history and physical will help you in the management of this patient Preoperative cardiac risk index risk/García SUSAN *0.1 % risk of MN, cardiac arrest or other cardiac events intraoperatively or up to 30 days postop Schroeder RCI *3.9% 30 day risk of MN or cardiac arrest Please do not hesitate to further contact me for information or questions Following up with Dr. Shantell Vera for Medicare wellness visit on 03/15/2025. Fasting labs prior. All quetsions answered to patients satisfaction. Patient verbalized understanding of diagnosis and treatments explained. To call sooner prior to next visit it any questions/concerns arise. Case discussed with collaborating physician Lisa Vera who reviewed the assessment and plan. Chart, medications, labs, vital signs reviewed. Dictation was accomplished with the use of [employer] voice recognition software, prone to medical misidentifications and grammatical errors. This is unintentional and the practitioner does try to identify and correct these, but some could still be present. Please do not hesitate to contact practitioner for clarification. 01/17/2025 Difficulty sleeping (ICD-10 - G47.9) Jennifer is a pleasant 69-year-old female who presents the office for a preop visit. She is scheduled with Dr. Cameron for lumbar decompression on 02/02/2025. EKG completed today, overall without acute concern. CBC, and CMP pending. # Vital stable # Vitamin D deficiency: Taking vitamin D # Chronic back pain: Scheduled for spinal decompression, takes gabapentin 400 mg 3 times daily # Hyperlipidemia: Rosuvastatin 5 mg # Difficulty sleeping: Trazodone 100 mg at night # Hearing loss: Bilateral hearing aids in place # Patient has upper and lower dentures/implants. # History of tobacco use, quit 1983. This is to inform you that I have examined our patient and after reviewing all clinically relevant information I find the patient to be medically stable, and is at an acceptable risk and fit to undergo Spinal decompression as mentioned above under anesthesia with its attendant risks. Please review the attached history and physical will help you in the management of this patient Preoperative cardiac risk index risk/García SUSAN *0.1 % risk of MN, cardiac arrest or other cardiac events intraoperatively or up to 30 days postop Schroeder RCI *3.9% 30 day risk of MN or cardiac arrest Please do not hesitate to further contact me for information or questions Following up with Dr. Shantell Vera for Medicare wellness visit on 03/15/2025. Fasting labs prior. All quetsions answered to patients satisfaction. Patient verbalized understanding of diagnosis and treatments explained. To call sooner prior to next visit it any questions/concerns arise. Case discussed with collaborating physician Lisa Vera who reviewed the assessment and plan. Chart, medications, labs, vital signs reviewed. Dictation was accomplished with the use of [employer] voice recognition software, prone to medical misidentifications and grammatical errors. This is unintentional and the practitioner does try to identify and correct these, but some could still be present. Please do not hesitate to contact practitioner for clarification. 01/17/2025 Hearing loss (ICD-10 - H91.90) Jennifer is a pleasant 69-year-old female who presents the office for a preop visit. She is scheduled with Dr. Cameron for lumbar decompression on 02/02/2025. EKG completed today, overall without acute concern. CBC, and CMP pending. # Vital stable # Vitamin D deficiency: Taking vitamin D # Chronic back pain: Scheduled for spinal decompression, takes gabapentin 400 mg 3 times daily # Hyperlipidemia: Rosuvastatin 5 mg # Difficulty sleeping: Trazodone 100 mg at night # Hearing loss: Bilateral hearing aids in place # Patient has upper and lower dentures/implants. # History of tobacco use, quit 1983. This is to inform you that I have examined our patient and after reviewing all clinically relevant information I find the patient to be medically stable, and is at an acceptable risk and fit to undergo Spinal decompression as mentioned above under anesthesia with its attendant risks. Please review the attached history and physical will help you in the management of this patient Preoperative cardiac risk index risk/García SUSAN *0.1 % risk of MN, cardiac arrest or other cardiac events intraoperatively or up to 30 days postop Schroeder RCI *3.9% 30 day risk of MN or cardiac arrest Please do not hesitate to further contact me for information or questions Following up with Dr. Shantell Vera for Medicare wellness visit on 03/15/2025. Fasting labs prior. All quetsions answered to patients satisfaction. Patient verbalized understanding of diagnosis and treatments explained. To call sooner prior to next visit it any questions/concerns arise. Case discussed with collaborating physician Lisa Vera who reviewed the assessment and plan. Chart, medications, labs, vital signs reviewed. Dictation was accomplished with the use of [employer] voice recognition software, prone to medical misidentifications and grammatical errors. This is unintentional and the practitioner does try to identify and correct these, but some could still be present. Please do not hesitate to contact practitioner for clarification. 01/17/2025 Hyperlipidemia (ICD-10 - E78.5) Jennifer is a pleasant 69-year-old female who presents the office for a preop visit. She is scheduled with Dr. Cameron for lumbar decompression on 02/02/2025. EKG completed today, overall without acute concern. CBC, and CMP pending. # Vital stable # Vitamin D deficiency: Taking vitamin D # Chronic back pain: Scheduled for spinal decompression, takes gabapentin 400 mg 3 times daily # Hyperlipidemia: Rosuvastatin 5 mg # Difficulty sleeping: Trazodone 100 mg at night # Hearing loss: Bilateral hearing aids in place # Patient has upper and lower dentures/implants. # History of tobacco use, quit 1983. This is to inform you that I have examined our patient and after reviewing all clinically relevant information I find the patient to be medically stable, and is at an acceptable risk and fit to undergo Spinal decompression as mentioned above under anesthesia with its attendant risks. Please review the attached history and physical will help you in the management of this patient Preoperative cardiac risk index risk/García SUSAN *0.1 % risk of MN, cardiac arrest or other cardiac events intraoperatively or up to 30 days postop Schroeder RCI *3.9% 30 day risk of MN or cardiac arrest Please do not hesitate to further contact me for information or questions Following up with Dr. Shantell Vera for Medicare wellness visit on 03/15/2025. Fasting labs prior. All quetsions answered to patients satisfaction. Patient verbalized understanding of diagnosis and treatments explained. To call sooner prior to next visit it any questions/concerns arise. Case discussed with collaborating physician Lisa Vera who reviewed the assessment and plan. Chart, medications, labs, vital signs reviewed. Dictation was accomplished with the use of [employer] voice recognition software, prone to medical misidentifications and grammatical errors. This is unintentional and the practitioner does try to identify and correct these, but some could still be present. Please do not hesitate to contact practitioner for clarification. PLAN OF TREATMENT Next Appt Details Provider Name:CANDIDO VERA, 11:15:00 AM, [address], [place], [address], Progress Notes * SAHARA ReshmaIbanOB:1955 ( 69 yo F)Acc No.[id number]:01/17/2025 Progress Note Patient:??SAHARA Jennifer Provider:??IMER EWING PA-C :1955?Age:69 Y?Sex:Fe male Date:01/17/2025 Address:[address], [id number] Subjective: * Chief Complaints: * ?1. Pt presents in offi today for preop with suregry date of 02/02/[address] cameron for lumbar decompresion needs ekg, cbc and comp fax [phone]. * HPI: ?Constitutional:? Jennifer is a pleasant 69-year-old female who presents the office for a preop visit. Patient is a primary care patient of Dr. Shantell Vera. Past medical history including depression, hyperlipidemia, and difficulty sleeping. Medication reconciliation completed. Patient is following with Dr. Cameron, scheduled for a lumbar decompression surgery on 02/02/2025. In need of a CBC, and CMP, as well as EKG.Ordering panel blood work, the patient obtain fasting tomorrow. EKG today without acute concern or any ST elevation. Patient has had multiple surgeries in the past for which she has tolerated anesthesia well. Her is bringing her to and from the procedure. Outpatient surgery. Declines any shortness of breath or chest pain or any concerns with climbing stairs. Patient states that overall she is feeling well. Does admit to some weight gain secondary to lack of exercise due to back pain, and is excited to get procedure to hopefully be more active especially throughout the summer. * ROS:?Constitutional: Patient denies any excessive fatigue with exercise, no weight loss, no fever, no night sweats, no changes in sleep. ???Eyes: No eye discharge, no itching, no redness, no vision changes. Advised the significance of regular eye exams to screen for glaucoma and other eye problems. ???Ear nose throat: No ear pain, No sore throat, no postnasal drip, no runny nose, no sneezing, no hearing changes ???Cardiovascular: No chest pain, no dyspnea on exertion, no PND, no orthopnea, no irregular pulse, no palpitations, no claudication, no diaphoresis, no claudication. ???Respiratory: No chronic cough, no hemoptysis, no sputum, no wheezing, no SOB, no pleuritic pain. ???GI, No diarrhea, no constipation, no blood in the stools, no pain associated with eating, no indigestion, no difficulty swallowing, no appetite change. ???Genitourinary: No painful urination, no hesitancy, no blood in the urine, no incontinence, no frequency, no urgency, no abnormal discharge. ???Musculoskeletal: + back pain, no joint pain, no limitations to walking and running, no joint deformity, no joint stiffness, no muscle weakness ???Integumentary: No new skin rash. No new changes in skin moles, no pruritis, no color change. ???Neurological: No history of seizures, no memory loss, no language dysfunction, no inability to concentrate, no localized weakness, no sensation loss, no confusion, no dizziness, no tremor, no numbness, no tingling. ???Psychiatric: no anxiety, no depression, no suicidal thoughts, feels safe at home. ???Endocrine: No polyuria, no polyphagia, no polydipsia. No heat/cold intolerance, no excesss thirst. ???Hematological: No easy bruising or bleeding, no lymph node swelling. * Medical History:??Depression , Difficulty sleeping, Hyperlipidemia, Hearing loss. * Surgical History:??gallbl[facility] er , Hand surgery x 3 for arthritis Jul 2024, cateract bilaterally , carpal tunnel release . * Family History:??Father: dec eased.??Mother: .??1 brother(s) . .?? mother: pacemaker 3 children. * Social History:?quit 1984 2 packs a day for 14 years ???declines tob use ???social alcohol use 1-2 drinks weekly ???declines drug use. * Medications:??Taking Vitamin D 50 MCG (2000 UT) Tablet 1 tablet Orally Once a day , Taking Gabapentin 400 MG Capsule 1 capsule Orally Three times daily , Taking CoQ-10 100 MG Capsule as directed Orally , Taking Glucosamine 500 MG Capsule 1 capsule with a meal Orally once a day , Taking Rosuvastatin Calcium 5 MG Tablet 1 tablet Orally Once a day , Taking traZODone HCl 100 MG Tablet TAKE 1 TABLET BY MOUTH AT BEDTIME , Medication List reviewed and reconciled with the patient * Allergies:??N.K.D.A. Objective: * Vitals:??HR:81/min, BP:120/8 2mm Hg, Wt:133lbs, BMI:25.97Index, Ht: 60 in, Oxygen sat %:95%. * Physical Examination:?General: Age appropriate Female, well appearing, no acute distress, speaking in full sentences without respiratory compromise. Well groomed, well developed. Alert, Interactive. ?Skin: Warm, dry and intact. No lesions/rashes/erythema. ?HEENT: Normocephalic/atraumatic. EOMI intact. PERRLA. Vision intact. No ptosis or lid lag. Nares without discharge or inflammation. Oral cavity free of plaques or exudates. Upper and lower denture implants. No pharyngeal erythema. Ear canal without cerumen or discharge. Tympanic membrane visualized including bony structures and cone of light.Patient wearing hearing aids. Removed for exam. ?Neck/Thyroid: Supple, with no lymphadenopathy. Full ROM. No carotid artery bruits auscultated. Thyroid free of nodules and nonenlarged. ?Lung: Clear to auscultation bilaterally, no wheezes, rales or rhonchi. No barrel chest. Equal chest rise and fall bilaterally. ?Cardiac: S1 and S2 appreciated. No murmurs/rubs or gallops. DP pulses intact 2+ bilaterally. Capillary refill <2 seconds. ?Abdomen: Soft, nontender, normoactive bowel sounds. No rebound/guarding. No CVA tenderness. No Masses. ?Extremities: Bilateral lower extremities with no edema or rubor. No evidence of varicose veins. Equal tone bilaterally. ?MSK: Bilateral upper and lower extremities 4/5 strength with flexion/extension. Cradle Slide Maker strength 4/5. Sensation intact. ?Neuro: CN II-XI grossly intact. Steady gait with ambulation observed. Symmetric reflexes. ?Psych: Stable mood and affect. Assessment: * Assessment: 1.??Preop examination - Z01. 818 (Primary)??2.??Lumbar back pain - M54.50??3.??Difficulty sleeping - G47.9??4.??Hearing loss - H91.90??5.??Hyperlipidemia - E78.5?? Jennifer is a pleasant 69-year- old female who presents the office for a preop visit. She is scheduled with Dr. Cameron for lumbar decompression on 02/02/2025. EKG completed today, overall without acute concern. CBC, and CMP pending. # Vital stable # Vitamin D deficiency: Taking vitamin D # Chronic back pain: Scheduled for spinal decompression, takes gabapentin 400 mg 3 times daily # Hyperlipidemia: Rosuvastatin 5 mg # Difficulty sleeping: Trazodone 100 mg at night # Hearing loss: Bilateral hearing aids in place # Patient has upper and lower dentures/implants. # History of tobacco use, quit 1983. This is to inform you that I have examined our patient and after reviewing all clinically relevant information I find the patient to be medically stable, and is at an acceptable risk and fit to undergo Spinal decompression as mentioned above under anesthesia with its attendant risks. Please review the attached history and physical will help you in the management of this patient Preoperative cardiac risk index risk/García SUSAN *0.1 % risk of MN, cardiac arrest or other cardiac events intraoperatively or up to 30 days postop Schroeder RCI *3.9% 30 day risk of MN or cardiac arrest Please do not hesitate to further contact me for information or questions Following up with Dr. Shantell Vera for Medicare wellness visit on 03/15/2025. Fasting labs prior. All quetsions answered to patients satisfaction. Patient verbalized understanding of diagnosis and treatments explained. To call sooner prior to next visit it any questions/concerns arise. Case discussed with collaborating physician Lisa Vera who reviewed the assessment and plan. Chart, medications, labs, vital signs reviewed. Dictation was accomplished with the use of [employer] voice recognition software, prone to medical misidentifications and grammatical errors. This is unintentional and the practitioner does try to identify and correct these, but some could still be present. Please do not hesitate to contact practitioner for clarification. Plan: * Treatment: * Labs:?? * ?Lab: HEMOGLOBIN A1 c ?Lab: VITAMIN D,25- [place],TOTAL,IA ?Lab: URINALYSIS, C OMPLETE ?Lab: COMPREHENSIVE METABOLIC PANEL ?Lab: CBC (INCLUDES DIFF/PLT) ?Lab: LIPID PANEL, STANDARD * Procedure Codes:??39413 -DEMAR CTROCARDIOGRAM, COMPLETE, Modifiers: 59 * Images: Billing Information: * Visit Code:?? 73775 Office Visit, Est Pt., Level 4. Modifiers: 25, SA * Procedure Codes:?? 03585 -ELECTROCARDIOGRAM, COMPLETE. Modifiers: 59 * Sign off status: Completed true * Provider:??IMER EWING PA-C Date:??01/07 History and Physical Notes * HPI (History of Present Illness) Category Sub-Category Detail Notes Category Not es Constitutional Jennifer is a pl easant 69-year-old female who presents the office for a preop visit. Patient is a primary care patient of Dr. Shantell Vera. Past medical history including depression, hyperlipidemia, and difficulty sleeping. Medication reconciliation completed. Patient is following with Dr. Cameron, scheduled for a lumbar decompression surgery on 02/02/2025. In need of a CBC, and CMP, as well as EKG.Ordering panel blood work, the patient obtain fasting tomorrow. EKG today without acute concern or any ST elevation. Patient has had multiple surgeries in the past for which she has tolerated anesthesia well. Her is bringing her to and from the procedure. Outpatient surgery. Declines any shortness of breath or chest pain or any concerns with climbing stairs. Patient states that overall she is feeling well. Does admit to some weight gain secondary to lack of exercise due to back pain, and is excited to get procedure to hopefully be more active especially throughout the summer. Physical Examination Category Sub-Category Detail Notes Section Note s General: Age appropriate Female, well appearing, no acute distress, speaking in full sentences without respiratory compromise. Well groomed, well developed. Alert, Interactive. Skin: Warm, dry and intact. No lesions/rashes/erythema. HEENT: Normocephalic/atraumatic. EOMI intact. PERRLA. Vision intact. No ptosis or lid lag. Nares without discharge or inflammation. Oral cavity free of plaques or exudates. Upper and lower denture implants. No pharyngeal erythema. Ear canal without cerumen or discharge. Tympanic membrane visualized including bony structures and cone of light.Patient wearing hearing aids. Removed for exam. Neck/Thyroid: Supple, with no lymphadenopathy. Full ROM. No carotid artery bruits auscultated. Thyroid free of nodules and nonenlarged. Lung: Clear to auscultation bilaterally, no wheezes, rales or rhonchi. No barrel chest. Equal chest rise and fall bilaterally. Cardiac: S1 and S2 appreciated. No murmurs/rubs or gallops. DP pulses intact 2+ bilaterally. Capillary refill <2 seconds. Abdomen: Soft, nontender, normoactive bowel sounds. No rebound/guarding. No CVA tenderness. No Masses. Extremities: Bilateral lower extremities with no edema or rubor. No evidence of varicose veins. Equal tone bilaterally. MSK: Bilateral upper and lower extremities 4/5 strength with flexion/extension. Cradle Slide Maker strength 4/5. Sensation intact. Neuro: CN II-XI grossly intact. Steady gait with ambulation observed. Symmetric reflexes. Psych: Stable mood and affect
--- OUTSIDE RECORDS SUMMARY | 2025-02-22 14:08 | XMS_ITS | Patient Health Record ---
Author Organization [facility] Address [address] [facility] [address] Care Team Providers Care School Nurse Name Role Phone CANDIDO VERA Unavailable [phone] ESTELLA NIEVES Unavailable [phone] NEDRA WINCHESTER Unavailable [phone] IMER FLORES Unavailable [phone] ALLERGIES No Known Allergies RESULTS Component Value Reference Range Notes EKG Reviewed date:01/17/2025 03:03:18 PM Interpretation: Performing [...] 0 RR_NumNormalBeats 0 RR_SystolicBP 0 RR_SystolicBP 0 LIPID PANEL, STANDARD Reviewed date:01/19/2025 07:57:53 AM Interpretation: Performing Lab:NL2, [facility] [address] [place], [place] [id number] Gi Diaz Notes/Report: 0; 0; 0; 0; 0; 0 FASTING:YES FASTING: YES CHOLESTEROL, TOTAL 235 <200 mg/dL HDL CHOLESTEROL 80 > OR = 50 mg/dL TRIGLYCERIDES 104 <150 mg/dL LDL-CHOLESTEROL 134 Reference range: <100 Desirable range <100 mg/dL for primary prevention; <70 mg/dL for patients with CHD or diabetic patients with > or = 2 CHD risk factors. LDL-C is now calculated using the Quang-Susan calculation, which is a validated novel method providing better accuracy than the Friedewald equation in the estimation of LDL-C. Quang SS et al. YANI. 2013;310(19): 8152-7903 (http://education.PlayData/faq/FAQ16 4) CHOL/HDLC RATIO 2.9 <5.0 (calc) NON HDL CHOLESTEROL 155 <130 mg/dL (calc) For patients with diabetes plus 1 major ASCVD risk factor, treating to a non-HDL-C goal of <100 mg/dL (LDL-C of <70 mg/dL) is considered a therapeutic option. COMPREHENSIVE METABOLIC PANE L Reviewed date:01/19/2025 07:57:53 AM Interpretation: Performing Lab:NL2, [facility] Gi Diaz Notes/Report: 0; 0; 0; [...] DIFF/PLT) Reviewed date:01/19/2025 07:57:53 AM Interpretation: Performing Lab:NL2, [facility] Gi Diaz Notes/Report: 0; 0; 0; [...] MPV 11.0 7.5-12.5 fL ABSOLUTE NEUTROPHILS 4570 3660-3098 cells/uL ABSOLUTE LYMPHOCYTES 5734 548-3700 cells/uL ABSOLUTE MONOCYTES 468 200-950 cells/uL ABSOLUTE EOSINOPHILS 59 15-500 cells/uL ABSOLUTE BASOPHILS 52 0-200 cells/uL NEUTROPHILS 70.3 LYMPHOCYTES 20.8 MONOCYTES 7.2 EOSINOPHILS 0.9 BASOPHILS 0.8 URINALYSIS, COMPLETE Reviewed date:01/19/2025 07:57:53 AM Interpretation: Performing Lab:NL2, [facility] Gi Diaz Notes/Report: 0; 0; 0; [...] Reviewed date:01/19/2025 07:57:53 AM Interpretation: Performing Lab:NL2, [facility] Gi Diaz Notes/Report: 0; 0; 0; [...] diagnosis of diabetes in children. According to [place] Diabetes Association (ADA) guidelines, hemoglobin A1c <7.0% represents optimal control in non- diabetic patients. Different metrics may apply to specific patient populations. Standards of Medical Care in Diabetes(ADA). VITAMIN D,25-OH,TOTAL,IA Reviewed date:01/19/2025 07:57:53 AM Interpretation: Performing Lab:NL2, [facility] Gi Diaz Notes/Report: 0; 0; 0; [...] D, (D2,D3), LC/MS/MS is recommended: order code 40980 (patients >2yrs). See Note 1 Note 1 For additional information, please refer to http://education.DecisionDesk/faq/MWK758 (This link is being provided for informational/ educational purposes only.) REASON FOR REFERRAL No Information MEDICATIONS Medication SIG (Take, Route, Frequency, Duration) Notes Start Date End Date Status Vitamin D 50 MCG (1999 UT) 1 tablet Oral ly Once a day Active CoQ-10 100 MG as directed Orally Active Gabapentin 400 MG 1 capsule Orally Thr ee times daily Active Glucosamine 500 MG 1 capsule with a destinee l Orally once a day Active Rosuvastatin Calcium 5 MG 1 tablet Orall y Once a day for 90 days 01/24/2022 Active traZODone HCl 100 MG TAKE 1 TABLET BY MO UT AT BEDTIME for 90 Active IMMUNIZATIONS Vaccine Route Administration Date Status Comme nts influenza IM Intramuscular 08/12/2021 Administered PROBLEMS Problem Type ICD Code Onset Dates Problem Status W/U Status Risk SNOMED Code Notes Problem Vitamin D deficiency , unspecified (E55.9) Active confirmed 01063846 Problem Hyperlipidemia, unspecified (E78.5) Active confirmed Hyperlip idemia (55386007) Problem Insomnia, unspecifie d (G47.00) Active confirmed Insomnia (906020131) Problem Other chronic pain (G89.29) Active confirmed 52142484 Problem Sciatica, unspecifie d side (M54.30) Active confirmed Sciatica (86203279) Problem Other specified counseling (Z71.89) Active confirmed Counseli ng (389724903) Problem Acquired hyperlipoproteinemia (E78.5) Active confirmed Hyperlipoprotei nemia (3722460) Problem Adult general medica l exam (Z00.00) Active confirmed Adult health examination (392254253) Problem Annual physical exam (Z00.00) Active confirmed 252000729 Problem Vitamin D deficiency (E55.9) Active confirmed Vitamin D defic iency (26939731) Problem Attention deficit hyperactivity disorder (ADHD), unspecified ADHD type (F90.9) Active confirmed Attention defic it hyperactivity disorder (536639716) Problem Diabetes mellitus screening (Z13.1) Active confirmed Diabetes m ellitus screening (758833944) Problem Osteoarthritis of multiple joints, unspecified osteoarthritis type (M15.9) Active confirmed Osteoarthritis of multiple joints (378092382) Problem Hyperlipemia, mixed (E78.2) Active confirmed 685999805 Problem Difficulty sleeping (G47.9) Active confirmed Difficulty slee ping (707008969) Problem Lipid screening (Z13.220) Active confirmed 888878834 Problem Hearing loss (H91.90) Active confirmed Hearing loss (86126343) Problem Hyperlipidemia (E78.5) Active confirmed Hyperlipidemia (92067184) VITAL SIGNS Heart Rate 81 /min 01/17/2025 Oximetry 95 % 01/17/2025 Blood pressure diastolic 82 mm Hg 01/17/2025 Height 60 in 01/17/2025 Blood pressure systolic 120 mm Hg 01/17/2025 Weight 133 lbs 01/17/2025 BMI 25.97 kg/m2 01/17/2025 Encounters Encounter Location Date Provider Diagnosis [address] [place] [address] 03/17/[address] [place] [address] 04/07/2024 LINDALEX NELSON [facility] [address] [place] [address] 06/01/2024 CANDIDO VERA [address] [place] [address] 09/28/2024 LINDALEX NELSON [facility] [address] [place] [address] 01/17/2025 LINDALEX VERA [facility] [address] [place] [address] 06/01/2024 NIEVES SORIA [facility] [address] [place] [address] 06/02/2024 IMER FLORES [facility] [address] [place] [address] 08/31/2024 CANDIDO VERA Vitamin D deficiency , unspecified E55.9 ; Hyperlipidemia, unspecified E78.5 ; Sciatica, unspecified side M54.30 and Insomnia, unspecified G47.00 [facility] [address] [place] [address] 03/02/2024 CANDIDO VERA Annual physical exam Z00.00 and Other specified counseling Z71.89 [facility] [address] [place] [address] 01/17/2025 IMER FLORES Preop examination Z01.818 ; Lumbar back pain M54.50 ; Difficulty sleeping G47.9 ; Hearing loss H91.90 and Hyperlipidemia E78.5 ASSESSMENTS Encounter Date Diagnosis Assessment Notes Treatment Notes Treatment Clinical Notes Section Notes 03/02/2024 Other specified counseling (ICD-10 - Z71.89) Patient lives with her , works part-time at [employer] [place]. Her son is getting in August/she is very excited about the libertarian. #Hyperlipidemia:Chol esterol has been increased, currently taking Crestor 5 mg every other day, discussed to take it daily along with lifestyle changes #Attention deficit hyperactivity disorder, diagnosed in 2009, sees a psychiatrist, is on methylphenidate and citalopram,Psychiatr ist has retired. Patient has been off methylphenidate and feels well. Discussed staying off it, with follow-up.Patient understands and agrees with the plan. #Sciatica/reports taking CBD oil. #Insomnia, on trazodone since menopause. Medicare Wellness Patient seen and examined. Patient is here for Medicare wellness examination. I reviewed standard Medicare wellness paperwork including PHQ-9, list of medications, allergies,family history, social history, surgical history, and paperwork is scanned separately. I screened the patient for current standard preventive protocols and discussed role of colonoscopy, bone density,age appropriate immunizations including pneumonia vaccine, flu and COVID vaccine, new RSV vaccine and shingles vaccine. We discussed at length role of healthcare proxy. Having a healthcare proxy is important for decision making. Patient provided with healthcare proxy paperwork. Discussion started on end-of-life issues and [place] order of life-sustaining treatment. 03/02/2024 Annual physical exam (ICD-10 - Z00.00) Patient lives with her , works part-time at [employer] [place]. Her son is getting in August/she is very excited about the libertarian. #Hyperlipidemia:Chol esterol has been increased, currently taking Crestor 5 mg every other day, discussed to take it daily along with lifestyle changes #Attention deficit hyperactivity disorder, diagnosed in 2009, sees a psychiatrist, is on methylphenidate and citalopram,Psychiatr ist has retired. Patient has been off methylphenidate and feels well. Discussed staying off it, with follow-up.Patient understands and agrees with the plan. #Sciatica/reports taking CBD oil. #Insomnia, on trazodone since menopause. Medicare Wellness Patient seen and examined. Patient is here for Medicare wellness examination. I reviewed standard Medicare wellness paperwork including PHQ-9, list of medications, allergies,family history, social history, surgical history, and paperwork is scanned separately. I screened the patient for current standard preventive protocols and discussed role of colonoscopy, bone density,age appropriate immunizations including pneumonia vaccine, flu and COVID vaccine, new RSV vaccine and shingles vaccine. We discussed at length role of healthcare proxy. Having a healthcare proxy is important for decision making. Patient provided with healthcare proxy paperwork. Discussion started on end-of-life issues and [place] order of life-sustaining treatment. 08/31/2024 Vitamin D deficiency, unspecified (ICD-10 - E55.9) Patient lives with her , works part-time at [employer] [place]. #Hyperlipidemia:Chol esterol has been increased, currently taking Crestor 5 mg every other day, discussed to take it daily along with lifestyle changes #Attention deficit hyperactivity disorder, diagnosed in 2009, sees a psychiatrist, is on methylphenidate and citalopram,Psychiatr ist has retired. Patient has been off methylphenidate and feels well. Discussed staying off it, with follow-up.Patient understands and agrees with the plan. #Sciatica/reports taking CBD oil. #Insomnia, on trazodone since menopause. 01/17/2025 Preop examination (ICD-10 - Z01.818) Jennifer [...] index risk/García SUSAN *0.1 % risk of ID, cardiac arrest or other cardiac events intraoperatively or up to 30 days postop Schroeder RCI *3.9% 30 day risk of ID or cardiac arrest Please do not hesitate [...] Dictation was accomplished with the use of [employer]ia[employer] voice recognition software, prone to medical misidentifications [...] index risk/García SUSAN *0.1 % risk of ID, cardiac arrest or other cardiac events intraoperatively or up to 30 days postop Schroeder RCI *3.9% 30 day risk of ID or cardiac arrest Please do not hesitate [...] Dictation was accomplished with the use of Mia[employer] voice recognition software, prone to medical misidentifications and grammatical errors. This is unintentional and the practitioner does try to identify and correct these, but some could still be present. Please do not hesitate to contact practitioner for clarification. 08/31/2024 Hyperlipidemia, unspecified (ICD-10 - E78.5) Patient lives with her , works part-time at [employer] [place]. #Hyperlipidemia:Chol esterol has been increased, currently taking Crestor 5 mg every other day, discussed to take it daily along with lifestyle changes #Attention deficit hyperactivity disorder, diagnosed in 2009, sees a psychiatrist, is on methylphenidate and citalopram,Psychiatr ist has retired. Patient has been off methylphenidate and feels well. Discussed staying off it, with follow-up.Patient understands and agrees with the plan. #Sciatica/reports taking CBD oil. #Insomnia, on trazodone since menopause. 01/17/2025 Difficulty sleeping (ICD-10 - G47.9) Jennifer [...] index risk/García SUSAN *0.1 % risk of ID, cardiac arrest or other cardiac events intraoperatively or up to 30 days postop Schroeder RCI *3.9% 30 day risk of ID or cardiac arrest Please do not hesitate [...] Dictation was accomplished with the use of Mia[employer]é voice recognition software, prone to medical misidentifications and grammatical errors. This is unintentional and the practitioner does try to identify and correct these, but some could still be present. Please do not hesitate to contact practitioner for clarification. 08/31/2024 Sciatica, unspecified side (ICD-10 - M54.30) Patient lives with her , works part-time at [employer] [place]. #Hyperlipidemia:Chol esterol has been increased, currently taking Crestor 5 mg every other day, discussed to take it daily along with lifestyle changes #Attention deficit hyperactivity disorder, diagnosed in 2009, sees a psychiatrist, is on methylphenidate and citalopram,Psychiatr ist has retired. Patient has been off methylphenidate and feels well. Discussed staying off it, with follow-up.Patient understands and agrees with the plan. #Sciatica/reports taking CBD oil. #Insomnia, on trazodone since menopause. 01/17/2025 Hearing loss (ICD-10 - H91.90) Jennifer [...] index risk/García SUSAN *0.1 % risk of ID, cardiac arrest or other cardiac events intraoperatively or up to 30 days postop Schroeder RCI *3.9% 30 day risk of ID or cardiac arrest Please do not hesitate [...] Dictation was accomplished with the use of Mia[employer] voice recognition software, prone to medical misidentifications [...] index risk/García SUSAN *0.1 % risk of ID, cardiac arrest or other cardiac events intraoperatively or up to 30 days postop Schroeder RCI *3.9% 30 day risk of ID or cardiac arrest Please do not hesitate [...] Dictation was accomplished with the use of MiaSolé voice recognition software, prone to medical misidentifications and grammatical errors. This is unintentional and the practitioner does try to identify and correct these, but some could still be present. Please do not hesitate to contact practitioner for clarification. 08/31/2024 Insomnia, unspecified (ICD-10 - G47.00) Patient lives with her , works part-time at [employer] [place]. #Hyperlipidemia:Chol esterol has been increased, currently taking Crestor 5 mg every other day, discussed to take it daily along with lifestyle changes #Attention deficit hyperactivity disorder, diagnosed in 2009, sees a psychiatrist, is on methylphenidate and citalopram,Psychiatr ist has retired. Patient has been off methylphenidate and feels well. Discussed staying off it, with follow-up.Patient understands and agrees with the plan. #Sciatica/reports taking CBD oil. #Insomnia, on trazodone since menopause. PLAN OF TREATMENT Pending Test Test Name Order Date Bone Density 01/24/2022 LIPID PANEL 01/19/2020 LIPID PANEL, STANDARD 03/02/2024 LIPID PANEL, STANDARD 08/31/2024 LIPID PANEL, STANDARD 06/14/2021 COMPREHENSIVE METABOLIC PANEL 03/02/2024 COMPREHENSIVE METABOLIC PANEL 06/14/2021 COMPREHENSIVE METABOLIC PANEL 08/31/2024 CBC (INCLUDES DIFF/PLT) 08/31/2024 CBC (INCLUDES DIFF/PLT) 06/14/2021 VITAMIN D,25-OH,TOTAL,IA 08/31/2024 VITAMIN D,25-OH,TOTAL,IA 01/24/2022 VITAMIN D,25-OH,TOTAL,IA 03/02/2024 Next Appt Details Provider Name:CANDIDO VERA, 11:15:00 AM, [address], [place], [address], Insurance Providers Payer Name Payer Address Payer Phone Subscriber Number Group Number Insured Name Patient Relationship to Insured Coverage Start Date Coverage End Date [employer] [place] Medicare Advantage 1 MERARY LYON, PAUL [id number] Jennifer Shoemaker Self - patient is the insured MEDICAL (GENERAL) HISTORY Medical History History ICD Code Depression F32.A Difficulty sleeping G47.9 Hyperlipidemia E78.5 Hearing loss H91.90 Surgical History Surgery Date(Month/Year) gallbladder Hand surgery x 3 for arthritis Jul 2024 cateract bilaterally carpal tunnel release
--- OUTSIDE RECORDS SUMMARY | 2025-02-22 14:08 | XMS_ITS | Data Portability ---
Author Organization [place] [facility] Ph[facility] [place] [place] Address [address] [place] [address] Assessment Encounter Date Assessment Date Assessment LastModified [...] severe pain. She has been treated with restorative care technician acetaminophen and nonsteroidals without benefit. In January [...] or 3 view 2023 024 [facility], [address], [facility], [place], [address], 06/06/202 4 09:49:21 MRI, lumbar spine, w/o contrast 2023 024 JO ANN Not available 07:58:24 Medication Orders None recorded. Patient TargetsNo targets recorded. Patient Instructions Encounter Date Encounter Id Patient Instructions Last Modified By Organization Details Last Modified Time 04/11/2024 [id number] AP and lateral radiographs lumbosacral spine were obtained in the [place] facility today. The prominent findings include severe [...] Details Recorded Time Chronic low back pain 902445836 Active 2023 Yordan Melendrez MD [address], [facility], [address], [place] [facility], [facility] 4 14:39:43 Degeneration of lumbar intervertebral disc 27287000 Active [address], [place], [address], [place] [facility], P 4 14:39:56 Problem Notes None recorded. Procedures Surgical History Date Name Laterality Status Provider Name and Address Organization Details Recorded Time Hand Surgery completed Roopa Carrington [place] - [facility], [facility] 04/11/2024 15:07:47 Hand Surgery completed Roopa Carrington [place] - [facility] 04/11/2024 15:07:47 Imaging Results Imaging Date [...] Updated DateTime 04/11/2024 154.94 cm 23.6 kg/m2 65194.[address] [place] [facility] 04/11/2024 15:06:28 Date Recorded Body height Body mass index (BMI) Body weight Provider Name and Address Organization Details Last Updated DateTime 04/28/2024 154.94 cm 23.6 kg/m2 39309.05 g Joyce Dominguez [place] - [facility] 04/28/2024 13:57:44 Social History Question Answer Notes LastModified by Organizat ion Details LastModified Time Tobacco Smoking Status Never Smoker Roopa Carrington null, [place] - [facility] 04/11/2024 15:06:56 What Is Your Level Of Alcohol Consumption? Moderate [email or web address] Information not available 04/11/2024 How Many Times Per Week Do You Consume Alcohol? 3-4 Times Per Week [email or web address] Information not available 04/11/2024 Do You Use Any Illicit Or Recreational Drugs? No [email or web address] Information not available 04/11/2024 Do You Or Have You Ever Used Any Other Forms Of Tobacco Or Nicotine? No [email or web address] Information not available 04/11/2024 Sex: Unknown Functional Status None recorded. Mental Status None recorded. Family History Relationship Description Onset Age of this Age Resolved Age Notes LastModified by Organization Details LastModified Time Mother Arthritis [email or web address] Not armaan ilable 04/11/2024 15:07:16 Mother Hyperlipidem ia [email or web address] Not available 15:07:34 Brother Arthritis [id number] Not av ailable 04/11/2024 15:07:17 Medical History [...] Anemia N Brain Injury N Heart Attack (PA) N Osteopenia N Diabetes N Bleeding Disorder [...] Diagnosis/Indication Diagnosis SNOMED-CT Code Diagnosis ICD10 Code Diagnosis Note [id number] MD [address]NA [address] [address] 04/11/2024 14:59:43 04/11/2024 15:40:13 Low back pain 267908026 M54.50 Additional diagnosis detail: Lumbar pain [id number] Yordan Melendrez MD [address] [address] 04/28/2024 13:38:39 04/28/2024 14:41:13 Chronic low back pain 007881760 M54.50 G89.29 Additional diagnosis detail: Chronic low back pain without sciatica, unspecifie d back pain laterality Degenerati on of lumbar intervertebral disc 13157738 M51.36 L1-2. L4-5 and L5-S1 Additional diagnosis detail: Degenerati ve disc disease, lumbar Health Concerns Section Related Observation LastModified by Organization Detai ls LastModified Time None Recorded Concern Status LastModified by Organization Details LastModified Time None Recorded Advance Directives Directive None Recorded Payers Encounter Date Sequence Insurance Name Policy Number Policy Salas Covered Member ID Salas Member ID Guarantor Name 04/11/2024 1 [employer] MED[employer] ADVANTAGE PLAN (MEDICARE REPLACEMENT HMO) [id number] 1 Jennifer Shoemaker [id number] Jennifer Shoemaker 04/28/2024 1 [employer] MED[employer]AGE PLAN (MEDICARE REPLACEMENT HMO) [id number] Jennifer Shoemaker [id number] Jennifer Shoemaker OBGyn Episode No OBEpisode recorded.
--- OUTSIDE RECORDS SUMMARY | 2025-02-22 14:08 | XMS_ITS ---
Author Organization [facility] Address [address] [place] [address] Care Team Providers Care Customer Consultant Name Role Phone CANDIDO DAMON Unavailable [phone] REASON FOR VISIT Fax preop paperwork clearance Encounters Encounter Location Date Provider Diagnosis [facility] [address] [place] [address] 01/17/2025 CANDIDO DAMON PLAN OF TREATMENT Next Appt Details Provider Name:LINDALEX NELSON, 11:15:00 AM, [address], [place], [address], Progress Notes * Reynaldo SHOEMAKEROB:1955 ( 69 yo F)Acc No.[id number]:01/17/2025 Patient:??AIMEEReshmaan :1955?Age:69 Y?Sex:Fe male Address:[address] [place] [address] * true * Date:??
--- OUTSIDE RECORDS SUMMARY | 2025-02-22 14:08 | XMS_ITS ---
Author Organization [employer] [facility] Address [address] [place] [address] Care Team Providers Care Neurology Manager Name Role Phone CANDIDO DAMON Unavailable [phone] REASON FOR VISIT medical records Encounters Encounter Location Date Provider Diagnosis [facility] [address] [place] [address] 09/28/2024 CANDIDO DAMON PLAN OF TREATMENT Next Appt Details Provider Name:LINDALEX NELSON, 11:15:00 AM, [address], [place], [address], Progress Notes * Reynaldo SHOEMAKEROB:1955 ( 69 yo F)Acc No.[id number]:09/28/2024 Patient:??DENZELJennifer HERNANDEZ :1955?Age:69 Y?Sex:Fe male Address:[address] [place] [address] * true * Date:??
== END 2025-02-22 11:53 | disposition home or self-care (01) ==
LOC: HO.HNS 11:40
PROVIDERS: PCP Internal Medicine; Visit Provider Physician Assistant
DX: Z98.890 Other specified postprocedural states (principal)
CPT/HCPCS: 99024

== ENCOUNTER → 2025-02-22 11:40 | Outpatient (BNVA) | payer MEDICARE, SELFPAY | PROVIDERS: PCP Internal Medicine; Visit Provider Physician Assistant | DX: Z47.89 Encounter for other orthopedic aftercare (principal); Z98.890 Other specified postprocedural states | CPT/HCPCS: 99212 ==

== ENCOUNTER 2025-04-05 13:33 | Outpatient (AMB) | payer MEDICARE, SELFPAY ==
--- NOTE | 2025-04-05 13:40 | A.SPINEOV_ITS ---
Intake Visit Reasons: 2nd post op Intake Note: Ms. Shoemaker is here today for her 2nd post op. Meter Installer And Remover Required: No Allergies erythromycin base Adverse Reaction (Unknown, Verified 02/02/25 08:09) Rash, as a child Assessment & Plan Assessment & Plan (1) Status post lumbar spine surgery for decompression of spinal cord: Code(s): Z98.890 - Other specified postprocedural states Category: Surgical Plan Operation: L4-5 Laminotomy, Partial facetectomy and foraminotomy Jennifer is a pleasant 69 year old female who underwent L4-5 lumbar decompression on 01/27/25. She continues to report some axial low back pain, which he has been mitigating with ibuprofen. Thankfully, she reports that the bulk of her lower extremity symptoms have resolved. She did site a few instances where she had fairly significant flare-ups of pain, but these always self-resolved. She asked several questions regarding the postoperative healing course, including potential subsequent imaging in the future to evaluate for more issues with her lumbar spine. No new neurological deficits. The patient ambulates well and rises from a seated position without difficulty. I would like Jennifer to follow up with us again as needed when she is more than 6 months out from surgery. I would like to see how she heals from the surgery until that time. I believe she is someone who may be heals a bit slower than other patients, and some of her pain may self resolve in the coming months. Pro Cameron MD,PhD [facility] Coding Level of Care Code Global (42619) Diagnoses Status post lumbar spine surgery for decompression of spinal cord Z98.890
--- OUTSIDE RECORDS SUMMARY | 2025-04-05 14:26 | XMS_ITS | Patient Health Record ---
Author Organization [facility] [address] Address [address] [place] [address] Care Team Providers Care Embroidery Designer Name Role Phone CANDIDO VERA Unavailable [phone] ESTELLANIEVES Unavailable [phone] IMER FLORES Unavailable [phone] Allergies No Known Allergies Results Component Value Reference Range Notes EKG Reviewed [...] 0 RR_NumNormalBeats 0 RR_SystolicBP 0 RR_SystolicBP 0 VITAMIN D,25-OH,TOTAL,IA Reviewed date:01/19/2025 07:57:53 AM Interpretation: Performing Lab:NL2, [facility] [place], [place] [address] Gi Diaz Notes/Report: 0; 0; 0; 0; [...] D, (D2,D3), LC/MS/MS is recommended: order code 98551 (patients >2yrs). See Note 1 Note 1 For additional information, please refer to http://education.Crossfader/faq/XWD225 (This link is being provided for informational/ educational purposes only.) HEMOGLOBIN A1c Reviewed date:01/19/2025 07:57:53 AM Interpretation: Performing Lab:NL2, [facility] [place] [phone] [place] [address] [facility] Notes/Report: 0; 0; 0; 0; 0; 0 [...] diagnosis of diabetes in children. According to [place] Diabetes Association (ADA) guidelines, hemoglobin A1c <7.0% represents optimal control in non- diabetic patients. Different metrics may apply to specific patient populations. Standards of Medical Care in Diabetes(ADA). URINALYSIS, COMPLETE Reviewed date:01/19/2025 07:57:53 AM Interpretation: Performing Lab:NL2, [facility] [address] [facility] Notes/Report: 0; 0; 0; 0; 0; 0 [...] elements. Only those elements seen were reported. CBC (INCLUDES DIFF/PLT) Reviewed date:01/19/2025 07:57:53 AM Interpretation: Performing Lab:NL2, [facility] [place] [phone] [place] [address] [facility] Notes/Report: 0; 0; 0; 0; 0; 0 [...] MPV 11.0 7.5-12.5 fL ABSOLUTE NEUTROPHILS 4570 7412-7446 cells/uL ABSOLUTE LYMPHOCYTES 0408 176-9506 cells/uL ABSOLUTE MONOCYTES 468 200-950 cells/uL ABSOLUTE EOSINOPHILS 59 15-500 cells/uL ABSOLUTE BASOPHILS 52 0-200 cells/uL NEUTROPHILS 70.3 LYMPHOCYTES 20.8 MONOCYTES 7.2 EOSINOPHILS 0.9 BASOPHILS 0.8 COMPREHENSIVE METABOLIC PANE L Reviewed date:01/19/2025 07:57:53 AM Interpretation: Performing Lab:NL2, [facility] [address] [place], [place] [phone] Gi Diaz Notes/Report: 0; 0; 0; 0; [...] 27 10-35 U/L ALT 34 6-29 U/L LIPID PANEL, STANDARD Reviewed date:01/19/2025 07:57:53 AM Interpretation: Performing Lab:NL2, [facility] [address] [place], [place] [phone] Gi Diaz Notes/Report: 0; 0; 0; 0; [...] LDL-C. Quang SS et al. YANI. 2013;310(19): 3617-1023 (http://education.[employer]/faq/FAQ16 4) CHOL/HDLC RATIO 2.9 <5.0 (calc) NON HDL CHOLESTEROL 155 <130 mg/dL (calc) For patients with diabetes plus 1 major ASCVD risk factor, treating to a non-HDL-C goal of <100 mg/dL (LDL-C of <70 mg/dL) is considered a therapeutic option. Reason For Referral No Information Medications Medication SIG (Take, Route, Frequency, Duration) Notes Start Date End Date Status CoQ-10 100 MG as directed Orally Active Gabapentin 400 MG 1 capsule Orally Thr ee times daily Active Rosuvastatin Calcium 5 MG 1 tablet Orall y Once a day for 90 days 01/24/2022 Active Glucosamine 500 MG 1 capsule with a destinee l Orally once a day Active traZODone HCl 100 MG TAKE 1 TABLET BY MO UT AT BEDTIME for 90 Active Rosuvastatin Calcium 10 MG 1 tablet Oral ly Once a day for 30 day(s) 03/15/2025 Active Vitamin D 50 MCG (2000 UT) 1 tablet Oral ly Once a day Active Immunizations Vaccine Route Administration Date Status Comme nts influenza IM Intramuscular 08/12/2021 Administered Problems Problem Type SNOMED Code ICD Code Onset Dates Problem Status W/U Status Risk Notes Problem 87835286 Vitamin D defici ency, unspecified (E55.9) Active confirmed Problem Hyperlipidemia (17003005) Hyperlipidemia, unspecified (E78.5) Active confirmed Problem Insomnia (144076329) Insomnia, u nspecified (G47.00) Active confirmed Problem 48641033 Other chronic pa in (G89.29) Active confirmed Problem Sciatica (91888779) Sciatica, un specified side (M54.30) Active confirmed Problem Counseling (256730125) Other specified counseling (Z71.89) Active confirmed Problem Hyperlipoproteinemia (4821606) Acquired hyperlipoproteinemia (E78.5) Active confirmed Problem Adult health examination (448987372) Adult general medical exam (Z00.00) Active confirmed Problem 405588509 Annual physical exam (Z00.00) Active confirmed Problem Vitamin D deficiency (32229396) Vitamin D deficiency (E55.9) Active confirmed Problem 23401956 Osteoporosis, unspecified osteoporosis type, unspecified pathological fracture presence (M81.0) Active confirmed Problem Attention deficit hyperactivity disorder (846136724) Attention deficit hyperactivity disorder (ADHD), unspecified ADHD type (F90.9) Active confirmed Problem Diabetes mellitus screening (181123136) Diabetes mellitus screening (Z13.1) Active confirmed Problem Osteoarthritis of multiple joints (231079252) Osteoarthritis of multiple joints, unspecified osteoarthritis type (M15.9) Active confirmed Problem 787335336 Hyperlipemia, mi xed (E78.2) Active confirmed Problem Difficulty sleeping (698675829) Difficulty sleeping (G47.9) Active confirmed Problem 566102983 Lipid screening (Z13.220) Active confirmed Problem Hearing loss (49185798) Hearing loss (H91.90) Active confirmed Problem Hyperlipidemia (25150330) Hyperlipidemia (E78.5) Active confirmed Vital Signs Heart Rate 72 /min 03/15/2025 Oximetry 95 % 03/15/2025 Blood pressure diastolic 74 mm Hg 03/15/2025 Height 60 in 03/15/2025 Blood pressure systolic 122 mm Hg 03/15/2025 Weight 137.6 lbs 03/15/2025 BMI 26.87 kg/m2 03/15/2025 Encounters Encounter Location Date Provider Diagnosis [facility] [address] [place] [address] 08/31/2024 CANDIDO VERA Vitamin D deficiency , unspecified E55.9 ; Hyperlipidemia, unspecified E78.5 ; Sciatica, unspecified side M54.30 and Insomnia, unspecified G47.[address] [place] [address] 01/17/2025 IMER FLORES Preop examination Z0 1.818 ; Lumbar back pain M54.50 ; Difficulty sleeping G47.9 ; Hearing loss H91.90 and Hyperlipidemia E78.[address] [facility] [address] [place] [address] 03/15/2025 CANDIDO VERA Adult general medica l exam Z00.00 and Other specified counseling Z71.89 [facility] [address] [facility] [address] [place] [address] 04/07/2024 [address]ANDID[address] VERA [facility] [address] [place] [address] 06/01/2024 CANDIDO VERA [facility] [address] [facility] [address] [place] [address] 09/28/2024 CANDIDO VERA [facility] [address] [place] [address] 01/17/2025 [address]ANDIDO VERA [facility] [address] [place] [address] 03/15/2025 [address]ANDIDO VERA [facility] [address] [place] [address] 03/15/2025 CANDIDO VERA Assessments Encounter Date Diagnosis (ICD Code) Assessment Notes Treatment Notes Treatment Clinical Notes Section Notes 08/31/2024 Vitamin D deficiency, unspecified (ICD-10 - E55.9) Patient lives with her , works part-time at [employer]. #Hyperlipidemia:Chol esterol has been increased, currently taking [...] index risk/García SUSAN *0.1 % risk of ME, cardiac arrest or other cardiac events intraoperatively or up to 30 days postop Schroeder RCI *3.9% 30 day risk of ME or cardiac arrest Please do not hesitate [...] Dictation was accomplished with the use of [employer] voice recognition software, prone to medical misidentifications [...] index risk/García SUSAN *0.1 % risk of ME, cardiac arrest or other cardiac events intraoperatively or up to 30 days postop Schroeder RCI *3.9% 30 day risk of ME or cardiac arrest Please do not hesitate [...] Dictation was accomplished with the use of [employer] voice recognition software, prone to medical misidentifications and grammatical errors. This is unintentional and the practitioner does try to identify and correct these, but some could still be present. Please do not hesitate to contact practitioner for clarification. 03/15/2025 Other specified counseling (ICD-10 - Z71.89) Patient is her e for Medicare wellness exam. Complete Paperwork reviewed. This includes Phq-9 and Alcohol Audit Screen. Obesity Screening Was Performed. Fall Assessment was made. [facility] Reviewed in detail. Discussed and Instructed on how to complete these forms and the significance. Reviewed All medical problems, medications were checked and updated. Reviewed family Social Surgical History. Cognitive Assessment made. 03/15/2025 Adult general medical exam (ICD-10 - Z00.00) Patient is her e for Medicare wellness exam. Complete Paperwork reviewed. This includes Phq-9 and Alcohol Audit Screen. Obesity Screening Was Performed. Fall Assessment was made. [facility] Reviewed in detail. Discussed and Instructed on how to complete these forms and the significance. Reviewed All medical problems, medications were checked and updated. Reviewed family Social Surgical History. Cognitive Assessment made. 01/17/2025 Difficulty sleeping (ICD-10 - G47.9) Jennifer [...] index risk/García SUSAN *0.1 % risk of ME, cardiac arrest or other cardiac events intraoperatively or up to 30 days postop Schroeder RCI *3.9% 30 day risk of ME or cardiac arrest Please do not hesitate [...] Dictation was accomplished with the use of [employer] voice recognition software, prone to medical misidentifications and grammatical errors. This is unintentional and the practitioner does try to identify and correct these, but some could still be present. Please do not hesitate to contact practitioner for clarification. 08/31/2024 Hyperlipidemia, unspecified (ICD-10 - E78.5) Patient lives with her , works part-time at [employer]. #Hyperlipidemia:Chol esterol has been increased, currently taking [...] index risk/García SUSAN *0.1 % risk of ME, cardiac arrest or other cardiac events intraoperatively or up to 30 days postop Schroeder RCI *3.9% 30 day risk of ME or cardiac arrest Please do not hesitate [...] Dictation was accomplished with the use of [employer] voice recognition software, prone to medical misidentifications and grammatical errors. This is unintentional and the practitioner does try to identify and correct these, but some could still be present. Please do not hesitate to contact practitioner for clarification. 08/31/2024 Sciatica, unspecified side (ICD-10 - M54.30) Patient lives with her , works part-time at [employer]. #Hyperlipidemia:Chol esterol has been increased, currently taking [...] oil. #Insomnia, on trazodone since menopause. 01/17/2025 Hyperlipidemia (ICD-10 - E78.5) Jennifer is [...] index risk/García SUSAN *0.1 % risk of ME, cardiac arrest or other cardiac events intraoperatively or up to 30 days postop Schroeder RCI *3.9% 30 day risk of ME or cardiac arrest Please do not hesitate [...] Dictation was accomplished with the use of [employer] voice recognition software, prone to medical misidentifications and grammatical errors. This is unintentional and the practitioner does try to identify and correct these, but some could still be present. Please do not hesitate to contact practitioner for clarification. 08/31/2024 Insomnia, unspecified (ICD-10 - G47.00) Patient lives with her , works part-time at [employer]. #Hyperlipidemia:Chol esterol has been increased, currently taking [...] CBD oil. #Insomnia, on trazodone since menopause. Plan Of Treatment Pending Test Test Name Order Date Bone Density 01/24/2022 Bone Density 03/15/2025 LIPID PANEL 01/19/2020 LIPID PANEL, STANDARD 06/14/2021 LIPID PANEL, STANDARD 03/15/2025 LIPID PANEL, STANDARD 08/31/2024 LIPID PANEL, STANDARD 03/02/2024 COMPREHENSIVE METABOLIC PANEL 08/31/2024 COMPREHENSIVE METABOLIC PANEL 03/15/2025 COMPREHENSIVE METABOLIC PANEL 06/14/2021 COMPREHENSIVE METABOLIC PANEL 03/02/2024 CBC (INCLUDES DIFF/PLT) 06/14/2021 CBC (INCLUDES DIFF/PLT) 08/31/2024 VITAMIN D,25-OH,TOTAL,IA 08/31/2024 VITAMIN D,25-OH,TOTAL,IA 01/24/2022 VITAMIN D,25-OH,TOTAL,IA 03/02/2024 Next Appt Details Provider Name:CANDIDO VERA, 11:00:00 AM, [address], [facility] [place] [place], [address], Insurance Providers Payer Name Payer Address Payer Phone Subscriber Number Group Number Insured Name Patient Relationship to Insured Coverage Start Date Coverage End Date [employer]vantage [address] [place] [address] [phone] [id number] Jennifer Shoemaker Self - patient is the insured Medical (General) History Medical History History ICD Code Depression F32.A Difficulty sleeping G47.9 Hyperlipidemia E78.5 Hearing loss H91.90 Surgical History Surgery Date(Month/Year) gallbladder Hand surgery x 3 for arthritis Jul 2024 cateract bilaterally carpal tunnel release
== END 2025-04-05 14:02 | disposition home or self-care (01) ==
LOC: HO.HNS 13:34
PROVIDERS: PCP Internal Medicine; Visit Provider Physician Assistant
DX: Z98.890 Other specified postprocedural states (principal)
CPT/HCPCS: 99024

== ENCOUNTER → 2025-04-05 13:33 | Outpatient (BNVA) | payer MEDICARE, SELFPAY | PROVIDERS: PCP Internal Medicine; Visit Provider Physician Assistant | DX: Z48.89 Encounter for other specified surgical aftercare (principal); Z98.890 Other specified postprocedural states | CPT/HCPCS: 99212 ==

== ENCOUNTER 2025-10-23 11:34 | Outpatient (AMB) | payer MEDICARE, SELFPAY ==
--- NOTE | 2025-10-23 11:45 | A.SPINEOV_ITS ---
Intake Visit Reasons: severe pain after sx Intake Note: Ms. Shoemaker is here today c/o recurrent pain after surgery. Pick And Shovel Worker Required: No Allergies erythromycin base Adverse Reaction (Unknown, Verified 10/23/25 11:50) Rash, as a child Assessment & Plan Assessment & Plan (1) Back pain: Code(s): M54.9 - Dorsalgia, unspecified Category: Medical Plan Mrs Shoemaker is here in follow-up. We did a lumbar decompression with excellent relief of her leg pain, however she has continued to have axial low back pain. More recently had a very severe flare-up around Thanksgiving that had her in bed for 2-3 days. She used tqdm-ejr-jxwjfqx meds like Advil and Tylenol as well as some leftover oxycodone that she had from her surgery. It has gotten slightly better but not significantly. She does not recall any specific event that is set it off. No pain radiating down the legs. She is very frustrated because she really can not do anything. Standing, walking, sitting etc. all make her quite uncomfortable. She has tried to do some of the stretching to loosen up and that only seems to make it worse. Neurological exam is unremarkable. Her wound is well healed. She localizes pain over the mid to upper lumbar region. I am going to order set of x-rays to evaluate for vertical alignment and to exclude a compression fracture. I will also order a lumbar MRI with and without gadolinium to evaluate for herniated disc. Total amount of time spent in this visit was 20 minutes in discussion of symptoms, order imaging and subsequent plan of care Chito Cameron MD,PhD [facility] Orders: Orders XR lumbar spine 4V min Today M54.9 - Dorsalgia, unspecified MR lumbar spine wo/w con Today M54.9 - Dorsalgia, unspecified Coding Level of Care Code Est Pt Level 3 (42542) Diagnoses Back pain M54.9
== END 2025-10-23 13:09 | disposition home or self-care (01) ==
LOC: HO.HNS 11:34
PROVIDERS: PCP Internal Medicine; Visit Provider Physician Assistant
DX: M54.9 Dorsalgia, unspecified (principal)
CPT/HCPCS: 99213

== ENCOUNTER 2025-10-23 11:34 | Outpatient (REF) | payer MEDICARE, SELFPAY ==
--- NOTE | ~2025-10-23 | XR_ITS ---
Examination: 4 view lumbar spine TECHNIQUE AP, and lateral: Flexion, neutral, and extension view x-rays of the lumbar spine. Prior: 10/14/2024 FINDINGS: Surgical clips are quadrant are probably related to cholecystectomy. Atherosclerotic calcifications are visible in the abdominal aorta. There are 5 non-rib bearing lumbar segments. There is 15 degrees levoscoliosis with apex at T12. T12-L1: Unremarkable L1-L2: There is severe disc space narrowing with endplate sclerosis and osteophytes there is subtle retrolisthesis that minimally changes during flexion and extension. L2-L3: There is mild to moderate disc space narrowing, endplate osteophytes, and subtle retrolisthesis. L3-L4: There is mild disc space narrowing with endplate sclerosis and osteophytes. L4-L5: There is mild disc space narrowing with vacuum phenomenon and endplate sclerosis and osteophytes. There is also facet sclerosis with osteophytes. L5-S1: There is moderate disc space narrowing with vacuum phenomena, endplate sclerosis and osteophytes. There is facet sclerosis and osteophytes. XR/XR lumbar spine 4V min IMPRESSION: Multilevel degenerative disc disease and facet osteoarthritis is most advanced at L1-L2 and has minimal progressed since the prior. Electronically signed by: Logan Tong MD 10/23/2025 05:30 PM [place]
== END 2025-10-23 11:35 | disposition home or self-care (01) ==
LOC: HO.HOSX 11:34
PROVIDERS: PCP Internal Medicine; Visit Provider Physician Assistant
DX: Z47.89 Encounter for other orthopedic aftercare (principal); M54.50 Low back pain, unspecified; Z98.890 Other specified postprocedural states
CPT/HCPCS: 72110; 99212

== ENCOUNTER → 2025-10-23 12:12 | Outpatient (BNV) | payer MEDICARE, SELFPAY | PROVIDERS: PCP Internal Medicine; Visit Provider Radiology Diagnostic Radiology | DX: M51.369 Other intervertebral disc degeneration, lumbar region without mention of lumbar back pain or lower extremity pain (principal); M47.816 Spondylosis without myelopathy or radiculopathy, lumbar region | CPT/HCPCS: 72110 ==